=== PATIENT | female | born 1955 | race Caucasian/White ===

== ENCOUNTER 2019-11-01 11:09 | Emergency (ER) | payer OTHER ==
[~2019-11-01] VITALS: Ht 167 cm; Wt 95.0 kg
[~2019-11-01 11:09] MED LIST: ACET-93 PO; ACET325T38 PO; AMIT50TA3 PO; ATOR20TA66 PO; BISO1TAB3 PO; IBUP200T48 PO; NAPR500T8 PO
--- NOTE | 2019-11-01 11:33 | ED Abdominal Pain ---
General Chief Complaint: Abdominal/GI Problems Stated Complaint: PAIN IN SIDE Source of Information: Patient History of Present Illness Date Seen by Provider: Nov 01, 2019 Time Seen by Provider: 11:18 Initial Comments PT ARRIVES VIA POV FROM HOME, NEEDS WHEELCHAIR ON ARRIVAL STATES APPROXIMATELY 2 HOURS AGO, WHILE SITTING DOWN, SHE SUDDENLY HAD A "TWINGE" OF PAIN IN HER CROTCH AREA, AND IT THEN HAS PROGRESSED TO SEVERE PAIN IN LEFT GROIN/LLQ AND LEFT FLANK AREA PAIN COMES IN WAVES AND IS SEVERE NOTHING WORSENS OR IMPROVES PAIN--TOOK 2 IBUPROFEN WITHOUT RELIEF + NAUSEA, NO VOMITING NO PROBLEMS WITH BM NO PROBLEMS URINATING OR ANY URINARY SYMPTOMS NO FEVER HAD NORMAL BM THIS AM--NO BLACK/BLOODY/TARRY STOOLS NO HISTORY OF SIMILAR PCP: DR. CHOUDHARY Allergies and Home Medications Allergies Coded Allergies: Sulfa (Sulfonamide Antibiotics) (Unverified Allergy, Unknown, 11/28/14) Tetanus Vaccines & Toxoid (Unverified Adverse Reaction, Mild, 11/28/14) ADVERSE REACTION TO ONE 34 YRS AGO Home Medications Acetaminophen 500 Mg Tablet, 1,000 MG PO DAILY PRN for PAIN, (Reported) Amitriptyline HCl 50 Mg Tablet, 50 MG PO HS, (Reported) Atorvastatin Calcium 20 Mg Tablet, 20 MG PO HS Prescribed by: BREONNA JAMES on 01/01/16 0851 Hydrocodone/Ibuprofen 1 Each Tablet, 1-2 TAB PO Q4H PRN for PAIN-MODERATE Prescribed by: SEAN FRY on 11/01/19 1300 Nitrofurantoin Monohyd/M-Cryst 100 Mg Capsule, 1 TAB PO BID Prescribed by: SEAN FRY on 11/01/19 1300 Ondansetron 8 Mg Tab.rapdis, 8 MG PO Q6H Prescribed by: SEAN FRY on 11/01/19 1300 Phenazopyridine HCl 200 Mg Tablet, 1 TAB PO TID Prescribed by: SEAN FRY on 11/01/19 1300 Tamsulosin HCl 0.4 Mg Cap, 0.4 MG PO DAILY Prescribed by: SEAN FRY on 11/01/19 1300 Patient Home Medication List Home Medication List Reviewed: Yes Review of Systems Review of Systems Constitutional: no symptoms reported EENTM: No Symptoms Reported Respiratory: No Symptoms Reported Cardiovascular: No Symptoms Reported Gastrointestinal: See HPI, Abdominal Pain; Denies Constipated, Denies Diarrhea; Nausea; Denies Vomiting Genitourinary: Denies Burning, Denies Frequency; Flank Pain; Denies Hematuria, Denies Incontinence, Denies Pain, Denies Urgency Musculoskeletal: see HPI, back pain Skin: no symptoms reported Psychiatric/Neurological: No Symptoms Reported Endocrine: No Symptoms Reported Hematologic/Lymphatic: No Symptoms Reported Past [id number]-[id number]-Idurxd Hx Past Med/Social Hx: Reviewed and Corrections made Patient Social History Alcohol Use: Denies Use Recreational Drug Use: No Smoking Status: Former Smoker (2 PPD, QUIT > 20 YEARS AGO) Type Used: Cigarettes Recent Foreign Travel: No Contact w/Someone Who Travel: No Immunizations Up To Date Tetanus Booster (TDap): More than 5yrs PED Vaccines UTD: Yes Seasonal Allergies Seasonal Allergies: Yes Past Medical History Surgeries: Yes (SPINAL FUSION;COLON RESECTION) Abdominal, Bowel Surgery, Section, Gallbladder, Orthopedic Respiratory: No Cardiac: Yes High Cholesterol, Hypertension Neurological: Yes (CVA W/ R FACIAL DROOP 2016-RESOLVED) Neuropathy, Stroke Reproductive Disorders: No Female Reproductive Disorders: Denies 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: 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 Sexually Transmitted Disease: No HIV/AIDS: No Genitourinary: Yes Neurogenic Bladder Gastrointestinal: Yes (RECTAL CANCER-S/P SURGERY/CHEMO/RADIATION; S/P CHOLECTYSTECTOMY) Gall Bladder Disease Musculoskeletal: Yes (SPINAL FUSION; BILATERAL FOOT DROP/NEUROPATHY FROM BACK PROBLEMS) Degenerate Disk Disease, Arthritis, Back Injury, Foot Drop, Chronic Back Pain Endocrine: No Loss of Vision: Denies Hearing Impairment: Denies Cancer: Yes (RECTAL CANCER 20 YEARS AGO) Rectal, Colon Did You Recieve Any Treatments: Yes What Type of Treatment Did You: Chemotherapy, Radiation, Surgical Intervention Psychosocial: Yes Anxiety Integumentary: No Blood Disorders: No Family Medical History Arthritis Asthma Cataracts Deafness or hearing loss Dementia Diabetes mellitus Fibrocystic disease of breast Gastroenteritis Headache disorder Hypercholesterolemia Hypertension Myocardial infarction Osteoporosis Parkinson's disease Psychosocial problem Thyroid disease Visual disorder No Family History of: AIDS Abdominal aortic aneurysm [place]'s disease Alcoholism Alzheimer's disease Aphasia Cancer of mouth Cardiovascular disease Colon cancer Completed stroke Congenital disease Congenital heart disease Coronary thrombosis Cystic fibrosis Drug abuse Dysphasia Glaucoma Infertility Kidney disease Not obtainable due to adoption Prostate cancer Respiratory disorder Seizure disorder Severe allergy Tuberculosis PSH: -COLONOSCOPIES -COLON RESECTION -LAP CHOLECYSTECTOMY -LUMBAR SPINAL FUSION - Physical Exam Vital Signs Vital Signs - First Documented 11/01/19 11:27 Temp 36.7 Pulse 85 Resp 22 B/P (MAP) 170/99 (122) O2 Delivery Room Air Capillary Refill : Height/Weight/BMI Height: 5'6.00" Weight: 215lbs. 2.0oz. 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, no motor/sensory deficits, alert, oriented x 3 Skin: normal color, warm/dry; No rash Progress/Results/Core Measures Results/Orders Lab Results Laboratory Tests Test 11/01/19 11:30 11/01/19 12:05 Range/Units White Blood Count 6.7 4.3-11.0 10^3/uL Red Blood Count 4.47 4.35-5.85 10^6/uL Hemoglobin 13.2 11.5-16.0 G/DL Hematocrit 40 35-52 % Mean Corpuscular Volume 90 80-99 FL Mean Corpuscular Hemoglobin 30 25-34 PG Mean Corpuscular Hemoglobin Concent 33 32-36 G/DL Red Cell Distribution Width 13.7 10.0-14.5 % Platelet Count 323 130-400 10^3/uL Mean Platelet Volume 9.9 7.4-10.4 FL Neutrophils (%) (Auto) 31 L 42-75 % Lymphocytes (%) (Auto) 54 H 12-44 % Monocytes (%) (Auto) 11 0-12 % Eosinophils (%) (Auto) 4 0-10 % Basophils (%) (Auto) 1 0-10 % Neutrophils # (Auto) 2.1 1.8-7.8 X 10^3 Lymphocytes # (Auto) 3.6 1.0-4.0 X 10^3 Monocytes # (Auto) 0.7 0.0-1.0 X 10^3 Eosinophils # (Auto) 0.3 0.0-0.3 10^3/uL Basophils # (Auto) 0.0 0.0-0.1 10^3/uL Sodium Level 140 135-145 MMOL/L Potassium Level 3.6 3.6-5.0 MMOL/L Chloride Level 107 98-107 MMOL/L Carbon Dioxide Level 21 21-32 MMOL/L Anion Gap 12 5-14 MMOL/L Blood Urea Nitrogen 11 7-18 MG/DL Creatinine 1.06 0.60-1.30 MG/DL Estimat Glomerular Filtration Rate 52 BUN/Creatinine Ratio 10 Glucose Level 110 H 70-105 MG/DL Calcium Level 9.1 8.5-10.1 MG/DL Corrected Calcium 8.7 8.5-10.1 MG/DL Magnesium Level 2.1 1.6-2.4 MG/DL Total Bilirubin 0.6 0.1-1.0 MG/DL Aspartate Amino Transf (AST/SGOT) 26 5-34 U/L Alanine Aminotransferase (ALT/SGPT) 32 0-55 U/L Alkaline Phosphatase 70 40-136 U/L Total Protein 8.0 6.4-8.2 GM/DL Albumin 4.5 3.2-4.5 GM/DL Amylase Level 49 25-125 U/L Lipase 40 8-78 U/L Urine Color YELLOW Urine Clarity SL CLOUDY Urine pH 5.5 5-9 Urine Specific Sixes >=1.030 1.016-1.022 Urine Protein NEGATIVE NEGATIVE Urine Glucose (UA) NEGATIVE NEGATIVE Urine Ketones NEGATIVE NEGATIVE Urine Nitrite NEGATIVE NEGATIVE Urine Bilirubin NEGATIVE NEGATIVE Urine Urobilinogen 0.2 < = 1.0 MG/DL Urine Leukocyte Esterase 1+ H NEGATIVE Urine RBC (Auto) 2+ H NEGATIVE Urine RBC 5-10 H /HPF Urine WBC 10-25 H /HPF Urine Squamous Epithelial Cells 2-5 /HPF Urine Crystals PRESENT H /LPF Urine Amorphous Sediment RARE SHANDA URATES H /LPF Urine Bacteria MODERATE H /HPF Urine Casts NONE /LPF Urine Mucus NEGATIVE /LPF Urine Culture Indicated YES My Orders Orders - SEAN FRY DO Ed Iv/Invasive Line Start (11/01/19 11:18) Amylase (11/01/19 11:18) Cbc With Automated Diff (11/01/19 11:18) Comprehensive Metabolic Panel (11/01/19 11:18) Lipase (11/01/19 11:18) Magnesium (11/01/19 11:18) Ua Culture If Indicated (11/01/19 11:18) Ondansetron Injection (Zofran Injectio (11/01/19 11:45) Ketorolac Injection (Toradol Injection) (11/01/19 11:34) Ed Iv/Invasive Line Start (11/01/19 11:34) Lactated Ringers (Lr 1000 Ml Iv Solution (11/01/19 11:34) Ct Abd/Pelvis Wo(Kidney Stone) (11/01/19 11:41) Abdomen/Kub 1view (11/01/19 11:41) Fentanyl Injection (Sublimaze Injection (11/01/19 12:15) Urine Culture (11/01/19 12:05) Fentanyl Injection (Sublimaze Injection (11/01/19 13:15) Tamsulosin Capsule (Flomax Capsule) (11/01/19 13:15) Medications Given in ED Current Medications Medications Dose Ordered Sig/Dianne Route Start Time Stop Time Status Last Admin Dose Admin Fentanyl Citrate 50 mcg ONCE ONCE IVP 11/01/19 12:15 11/01/19 12:16 DC 11/01/19 12:14 50 MCG Lactated Ringer's 1,000 ml @ 0 mls/hr Q0M ONCE IV 11/01/19 11:34 11/01/19 11:35 DC 11/01/19 11:41 1,000 MLS/HR Ondansetron HCl 4 mg ONCE ONCE IVP 11/01/19 11:45 11/01/19 11:46 DC 11/01/19 11:41 4 MG Vital Signs/I&O 11/01/19 11/01/19 11/01/19 11:27 11:41 12:14 Temp 36.7 36.7 36.7 Pulse 85 Resp 22 B/P (MAP) 170/99 (122) O2 Delivery Room Air Progress Progress Note : Progress Note SYMPTOMS IMPROVED AT DISMISSAL Diagnostic Imaging Comments ABDOMEN XRAYS--PELVIC CALCIFICATIONS OF NO SIGNIFICANCE CT ABDOMEN/PELVIS--PUNCTATE CALCIFICATION LEFT UVJ AREA, WITH MILD LEFT HYDROURETER--POSSIBLE RECENTLY PASSED STONE. RIGHT OVARIAN CYST PER RADIOLOGIST REPORTS AT 1253 Reviewed: Reviewed by Me Departure Impression Primary Impression: Left ureteral calculus Additional Impression: Right ovarian cyst Disposition: HOME, SELF-CARE Condition: Improved Departure-Patient Inst. Referrals: CALEB CHOUDHARY MD (PCP/Family) Primary Care Physician Patient Instructions: Kidney Stones (DC), Ovarian Cyst (DC) Add. Discharge Instructions: LOTS OF CLEAR LIQUIDS STRAIN ALL URINE--RETURN ANY STONES TO YOUR DR'S OFFICE RETURN TO ER IF WORSE FOLLOW UP WITH YOUR DR IN THE NEXT MONTH FOR FURTHER EVALUATION OF RIGHT OVARIAN CYST. All discharge instructions reviewed with patient and/or family. Voiced understanding. Scripts Phenazopyridine HCl (Pyridium) 200 Mg Tablet 1 TAB PO TID, #15 TAB Prov: SEAN FRY DO 11/01/19 Hydrocodone/Ibuprofen (Hydrocodone-Ibuprofen 7.5-200) 1 Each Tablet 1-2 TAB PO Q4H PRN for PAIN-MODERATE MDD 6 TABS for 7 Days, #20 TAB Prov: SEAN FRY DO 11/01/19 Ondansetron (Ondansetron Odt) 8 Mg Tab.rapdis 8 MG PO Q6H, #10 TAB Prov: SEAN FRY DO 11/01/19 Tamsulosin HCl (Flomax) 0.4 Mg Cap 0.4 MG PO DAILY, #10 CAP Prov: SEAN FRY DO 11/01/19 Nitrofurantoin Monohyd/M-Cryst (Macrobid 100 mg Capsule) 100 Mg Capsule 1 TAB PO BID, #20 CAP Prov: SEAN FRY DO 11/01/19 SEAN FRY DO Nov 01, 2019 11:33
[2019-11-01 11:34] LABS: BASOPHILS % (AUTO) 1 % (0-10); EOSINOPHILS # (AUTO) 0.3 10^3/uL (0.0-0.3); EOSINOPHILS % (AUTO) 4 % (0-10); HEMATOCRIT 40 % (35-52); HEMOGLOBIN 13.2 G/DL (11.5-16.0); LYMPHOCYTES # (AUTO) 3.6 X 10^3 (1.0-4.0); LYMPHOCYTES % (AUTO) 54 % (12-44); MEAN CORPUSCULAR HEMOGLOBIN 30 PG (25-34); MEAN CORPUSCULAR HGB CONC 33 G/DL (32-36); MEAN CORPUSCULAR VOLUME 90 FL (80-99); MEAN PLATELET VOLUME 9.9 FL (7.4-10.4); MONOCYTES # (AUTO) 0.7 X 10^3 (0.0-1.0); MONOCYTES % (AUTO) 11 % (0-12); NEUTROPHILS # (AUTO) 2.1 X 10^3 (1.8-7.8); NEUTROPHILS % (AUTO) 31 % (42-75); PLATELET COUNT 323 10^3/uL (130-400); RED CELL DISTRIBUTION WIDTH 13.7 % (10.0-14.5); WHITE BLOOD COUNT 6.7 10^3/uL (4.3-11.0)
[2019-11-01] MEDS ORDERED: KETOROLAC 30 MG/ML VIAL IVP STA (11:34)
[2019-11-01] MEDS ORDERED: LACTATED RINGERS 1,000 ML IV ONE (11:34)
--- OUTSIDE RECORDS SUMMARY | 2019-11-01 11:36 | XMS REPORT ---
Author Author [employer] Organization [employer] Address [address] [address] Care Team Providers Care Dishwasher Preparer Name Role Phone CALEB BERNSTEIN Unavailable CALEB BERNSTEIN MD Unavailable Unavailable CALEB BERNSTEIN MD Unavailable Unavailable Allergies Normalized Allergy Reported Date of Reaction(s) Care Provider Facility Allergy Type classification allergen Allergy Onset DA (3 Unclassified Tetanus 11-28-2014 - no information ANTONI NIXON Via sources.) Vaccines and [facility] Toxoid [facility] ([address]) Medications No Information Problems Problem Normalized Date of Normalized Normalized Provider Fac ility Classification Problem(s) Problem Problem Problem Sta tus Onset/Resoluti Duration on Fluid and Dehydration Episodic Active ANTONI NIXON V ia electrolyte [facility] disorders (1 Hospital - source.) [place] ([address]) Other Nonspecific Episodic Active ANTONI NIXON V ia gastrointestin abnormal [facility] al disorders findings in Hospital - (1 source.) stool contents [place] ([address]) Other Other Episodic Active ANTONI NIXON Via screening for screening [facility] suspected mammogram Hospital - conditions [place] (not mental ([address]) disorders or infectious disease) (1 source.) Intestinal Paralytic Episodic Active ANTONI NIXON Vi a obstruction ileus [facility] without hernia Hospital - (1 source.) [place] ([address]) Cancer of Personal Episodic Active ANTONI NIXON Via rectum and history of [facility] anus (1 malignant Hospital - source.) 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 Immunizations No Information Results No Information Vital Signs The data below is from unstructured sources Vital Response Date/Time Temperature (Fahrenheit) 96.9 degree s F (97.6 - 99.5) 01/01/2016 8:00am Temperature (Calculated Celsius) 36. 75451 degrees C (36.4 - 37.5) 01/01/2016 8:00am Temperature Source Tympanic 01/01/2016 8:00am Pulse Rate (adult) 59 bpm (60 - 90) 01/01/2016 8:00am Respiratory Rate 14 bpm (12 - 24) 01/01/2016 8:00am O2 Sat by Pulse Oximetry 94 % (88 - 100) 01/01/2016 8:00am Blood Pressure 137/89 mm Hg 01/01/2016 8:00am Blood Pressure Mean 105 mm Hg 01/01/2016 8:00am Pain Pain Intensity 0 2015 8:05pm Height (Feet) 5 feet 07/2015 8:05pm Height (Inches) 6.00 inches 12/30/2015 8:05pm Height (Calculated Centimeters) 167. 246723 cm 12/30/2015 8:05pm Weight (Pounds) 215 pounds 01/01/2016 6:00am Weight (Ounces) 2.0 oz 0 01/01/2016 6:00am Weight (Calculated Grams) 08208.060 gm 01/01/2016 6:00am Weight (Calculated Kilograms) 97.579 060 kilograms 01/01/2016 6:00am Calculated BMI 35.5 07/2015 8:05pm Vital Response Date/Time Temperature (Fahrenheit) 97.4 degree s F (97.6 - 99.5) Temperature (Calculated Celsius) 36. 03829 degrees C (36.4 - 37.5) Temperature Source Tympanic Pulse Rate (adult) 74 bpm (60 - 90) Respiratory Rate 18 bpm (12 - 24) O2 Sat by Pulse Oximetry 96 % (88 - 100) Blood Pressure 137/72 mm Hg Pain Pain Intensity 0 Height (Feet) 5 feet Height (Inches) 6.00 inches Height (Calculated Centimeters) 167. 740587 cm Weight (Pounds) 210 pounds Weight (Ounces) 0.0 oz Weight (Calculated Grams) 08347.399 gm Weight (Calculated Kilograms) 95.254 399 kilograms Height 5 ft 6 in Weight 210 lb Body Mass Index 33.9 kg/m^2 Vital Response Date/Time Temperature (Fahrenheit) 97.2 degree s F (97.6 - 99.5) Temperature (Calculated Celsius) 36. 59917 degrees C (36.4 - 37.5) Temperature Source Temporal Pulse Rate (adult) 76 bpm (60 - 90) Respiratory Rate 18 bpm (12 - 24) O2 Sat by Pulse Oximetry 96 % (88 - 100) Blood Pressure 138/70 mm Hg Pain Pain Intensity 0 Height (Feet) 5 feet Height (Inches) 6.00 inches Height (Calculated Centimeters) 167. 983081 cm Weight (Pounds) 210 pounds Weight (Ounces) 0.0 oz Weight (Calculated Grams) 26871.399 gm Weight (Calculated Kilograms) 95.254 399 kilograms Calculated BMI 33.89 Vital Response Date/Time Temperature (Fahrenheit) 97.2 degree s F (97.6 - 99.5) Temperature (Calculated Celsius) 36. 88069 degrees C (36.4 - 37.5) Temperature Source Temporal Pulse Rate (adult) 76 bpm (60 - 90) Respiratory Rate 18 bpm (12 - 24) O2 Sat by Pulse Oximetry 96 % (88 - 100) Blood Pressure 138/70 mm Hg Pain Pain Intensity 0 Height (Feet) 5 feet Height (Inches) 6.00 inches Height (Calculated Centimeters) 167. 895347 cm Weight (Pounds) 210 pounds Weight (Ounces) 0.0 oz Weight (Calculated Grams) 90448.399 gm Weight (Calculated Kilograms) 95.254 399 kilograms Calculated BMI 33.89 Interventions No Information Plan of Treatment The data below is from unstructured sources Discharge Date 01/01/16 9:45am Disposition 01 HOME, SELF-CARE Instructions/Education Provided Isch emic Stroke (DC) Forms Provided PDI Medical Prescriptions See Medication Section Referrals (Unspecified) - Reason(s) for Referral: Follow up with Dr. Bernstein on January 05 at 1:30 p.m. Discharge Date 11/30/14 10:56am Disposition 09 ADMITTED INPATIENT Condition at Discharge Stable/Unchan ged Instructions/Education Provided Acut e Abdominal Pain (ED) Prescriptions See Medications Sectio n Referrals CALEB BERNSTEIN MD (Unspeci fied) Primary Care Physician Address: Formerly named [facility] [facility], [address] [place] [address] [phone] Reason(s) for Referral: FOLLOW-UP NEEDED WITH DR BERNSTEIN AND/OR KEEP ALREADY SCHEDULED APPOINTMENTS Discharge Date 11/30/14 12:04pm Disposition 30 STILL A PATIENT Instructions/Education Provided Acut e Abdominal Pain (ED) Prescriptions See Medications Sectio n Referrals CALEB BERNSTEIN MD (Unspeci fied) Address: Formerly named [facility] [facility] [address] [place] [address] [phone] Reason(s) for Referral: FOLLOW-UP NEEDED WITH DR BERNSTEIN AND/OR KEEP ALREADY SCHEDULED APPOINTMENTS Discharge Date 11/30/14 12:04pm Disposition 30 STILL A PATIENT Instructions/Education Provided Acut e Abdominal Pain (ED) Prescriptions See Medications Sectio n Referrals CALEB BERNSTEIN MD (Unspeci fied) Address: Formerly named [facility] [address] [place] [address] [phone] Reason(s) for Referral: FOLLOW-UP NEEDED WITH DR BERNSTEIN AND/OR KEEP ALREADY SCHEDULED APPOINTMENTS Goals No Information Social History No Information Functional Status The data below is from unstructured sources Query Response Date Chinmay rded Patient Orientation Person Place Time Situation December 31, 2015 4:10pm Patient Orientation Person Place Time Situation January 01, 2016 10:22am Comprehension Ability Understands Co ncepts January 01, 2016 9:03am Query Response Date Chinmay rded Comprehension Ability Understands Co ncepts November 28, 2014 1:30pm Query Response Date Chinmay rded Comprehension Ability Understands Co ncepts November 28, 2014 1:30pm Mental Status No Information Encounters Encounter Normalized Encounter Encounter Diagnosis Care Provi evy Organization Date Type 05-08-2014 Patient encounter no information no name (no phone) no organization name procedure (no phone) no information Pre-operative no name (no phone) no organiza tion name examination, (no phone) unspecified Medical Equipment No Information Payers No Information Advance Directives Directive Response Recor ded Date/Time Advance Directives No 8:05pm Health Care Power of [employer] No 12/30/15 8:05pm Organ Donor Yes 12/30/15 8:05pm Resuscitation Status Full Code 12/30/15 8:05pm Directive Response Recor ded Date/Time Advance Directives No 8:16am Health Care Power of [employer] No 12/30/14 8:16am Organ Donor Yes 12/30/14 8:16am Resuscitation Status Full Code 12/30/14 8:16am Directive Response Recor ded Date/Time Advance Directives No 1:17pm Health Care Power of [employer]orer [employer] No 11/28/14 1:17pm Organ Donor Yes 11/28/14 1:17pm Resuscitation Status Full Code 11/28/14 1:17pm Discharge Instructions No hospital discharge instructions. Patient Instructions Physician Instructions Plan of Care/Instructions/FU: Continue a light bland diet. I would not use Imodium for several days. It would be okay to try a probiotic Asked Dr. Bernstein about the use of Questran Activity as Tolerated: Yes Discharge Diet: Eat Small Frequent Meals Return to The Hospital For: Relapsed to vomiting and no bowel movements Care Plan Patient Instructions:: Continue a light bland diet.I would not use Imodium for several days.It would be okay to try a probioticAsked Dr. Bernstein about the use of Questran Patient Instructions Physician Instructions Plan of Care/Instructions/FU: Continue a light bland diet. I would not use Imodium for several days. It would be okay to try a probiotic Asked Dr. Bernstein about the use of Questran Activity as Tolerated: Yes Discharge Diet: Eat Small Frequent Meals Return to The Hospital For: Relapsed to vomiting and no bowel movements Care Plan Patient Instructions:: Continue a light bland diet.I would not use Imodium for several days.It would be okay to try a probioticAsked Dr. Bernstein about the use of Questran Additional Source Comments This clinical document has been generated using [employer] software that has been certified by the Office of the National Coordinator for Health Information Technology (ONC 15.99.04.3023.Diam.31.00.0.074943) and the National Committee for Hydrological Technical Officer (NCQA, as an eMeasure certified technology). FOR RECORDS PERTAINING TO PATIENTS WHO ARE OR HAVE BEEN ENROLLED IN A CHEMICAL D EPENDENCY/SUBSTANCE ABUSE PROGRAM, SOME INFORMATION MAY BE OMITTED. This clinica l summary was aggregated from multiple sources. Caution should be exercised in using it in the provision of clinical care. This summary normalizes information from multiple sources, and as a consequence, information in this document may ma terially change the coding, format and clinical context of patient data. In hilda tion, data may be omitted in some cases. CLINICAL DECISIONS SHOULD BE BASED ON T HE PRIMARY CLINICAL RECORDS. [facility] [employer] [facility]. provides no warranty or guara ntee of the accuracy or completeness of information in this document.The followi ng information is based on time limited clinical information
--- OUTSIDE RECORDS SUMMARY | 2019-11-01 11:37 | XMS REPORT | Continuity of Care Document ---
Author Organization Unknown Address Unknown Phone Unavailable Allergies Active Description Code Type Severity Reaction Onset Reported/Identified Relationship to Patient Clinical Status Yes Tetanus Vaccines Toxoid [id number] Drug Allergy Mild N/A 11/28/2014 Yes Tetanus Vaccines and Toxoid [id number] Drug Allergy Mild N/A 11/28/2014 Yes Sulfa (Sulfonamide Antibiotics) [id number] Drug Allergy Unknown N/A 015 Medications There is no data. Problems Date Dx Coded Attending Type Code Diagnosis Diagnosed By 07/14/2011 Ot 724.4 07/14/2011 Ot 729.5 07/14/2011 Ot 782.0 07/14/2011 Ot V57.1 11/28/2014 Ot 574.20 11/28/2014 Ot 574.20 11/28/2014 Ot V72.84 11/28/2014 Ot V74.8 11/28/2014 Ot 574.10 11/28/2014 Ot 722.10 11/28/2014 Ot V76.12 11/28/2014 CALEB CHOUDHARY MD Ot V76. 12 11/28/2014 Ot 574.20 11/28/2014 Ot 574.20 11/28/2014 Ot V72.84 11/28/2014 Ot V74.8 11/28/2014 Ot 574.10 11/28/2014 Ot 722.10 11/28/2014 Ot V76.12 11/28/2014 CALEB CHOUDHARY MD Ot V76. 12 11/30/2014 KENRICK GARCIA, CALEB Rodriguez Ot 276. 51 DEHYDRATION 11/30/2014 KENRICK GARCIA, CALEB Rodriguez Ot 560. 1 PARALYTIC ILEUS 11/30/2014 CALEB CHOUDHARY MD Ot 787. 01 NAUSEA WITH VOMITING 11/30/2014 KENRICK GARCIA, CALEB Rodriguez Ot 792. 1 ABN FIND-STOOL CONTENTS 11/30/2014 KENRICK GARCIA, CALEB Rodriguez Ot V10. 06 HX-RECTAL ANAL MALIGN 12/08/2014 Ot 574.20 12/08/2014 Ot 574.20 12/08/2014 Ot V72.84 12/08/2014 Ot V74.8 12/08/2014 Ot 574.10 12/08/2014 Ot 722.10 12/08/2014 Ot V76.12 12/08/2014 CALEB CHOUDHARY MD Ot V76. 12 12/30/2014 CALEB CHOUDHARY MD Ot 211. 4 BENIGN NEOPL RECTUM/ANUS 12/30/2014 CALEB CHOUDHARY MD Ot V10. 06 HX-RECTAL ANAL MALIGN 01/01/2016 HUMPHREY DO, CYNTHIA Ot G57.32 LESION OF LATERAL POPLITEAL NERVE, LEFT 01/01/2016 HUMPHREY DO, CYNTHIA Ot H53.2 DIPLOPIA 01/01/2016 HUMPHREY DO, CYNTHIA Ot H55.00 UNSPECIFIED NYSTAGMUS 01/01/2016 HUMPHREY DO, CYNTHIA Ot I10 ESSENTIAL (PRIMARY) HYPERTENSION 01/01/2016 HUMPHREY DO, CYNTHIA Ot I63.9 CEREBRAL INFARCTION, UNSPECIFIED 01/01/2016 HUMPHREY DO, CYNTHIA Ot R27.0 ATAXIA, UNSPECIFIED 01/01/2016 HUMPHREY DO, CYNTHIA Ot R29.81 0 FACIAL WEAKNESS 01/01/2016 HUMPHREY DO, CYNTHIA Ot T45.1X 5A ADVERSE EFFECT OF ANTINEOPLASTIC AND IMM 01/01/2016 MILAGRO DO CYNTHIA Ot Y84.2 RADIOLOG PROC/RADIOTHRPY CAUSE ABN REACT 05/13/2016 CALEB CHOUDHARY MD Ot Z12. 31 ENCNTR SCREEN MAMMOGRAM FOR MALIGNANT NE 05/25/2016 CALEB CHOUDHARY MD Ot Z12. 31 ENCNTR SCREEN MAMMOGRAM FOR MALIGNANT NE 12/17/2018 CALEB CHOUDHARY MD Ot V76. 12 OT SCREEN MAMMO-MALIGN NEOPLASM OF GERARDO 12/17/2018 CALEB CHOUDHARY MD Ot V72. 84 EXAM PRE-OPERATIVE NOS Procedures Code Description Performed By Per formed On [id number] 12/30/2015 Results Test Result Range Complete blood count (CBC) with automate d white blood cell (WBC) differential - 11/01/19 11:30 Blood leukocytes automated count (number/volume) 6.7 10*3/uL 4.3-11.0 Blood erythrocytes automated count (number/volume) 4.47 10*6/uL 4.35-5.85 Venous blood hemoglobin measurement (mass/volume) 13.2 g/dL 11.5-16.0 Blood hematocrit (volume fraction) 40 % 35-52 Automated erythrocyte mean corpuscular volume 90 [ foz_us] 80-99 Automated erythrocyte mean corpuscular h emoglobin (mass per erythrocyte) 30 pg 25-34 Automated erythrocyte mean corpuscular h emoglobin concentration measurement (mass/volume) 33 g/dL 32-36 Automated erythrocyte distribution width ratio 13. 7 % 10.0- 14.5 Automated blood platelet count (count/volume) 323 10*3/uL 130-400 Automated blood platelet mean volume measurement 9.9 [foz_us] 7.4-10.4 Automated blood neutrophils/100 leukocytes 31 % 42-75 Automated blood lymphocytes/100 leukocytes 54 % 12-44 Blood monocytes/100 leukocytes 11 % 0-12 Automated blood eosinophils/100 leukocytes 4 % 0-10 Automated blood basophils/100 leukocytes 1 % 0-10 Blood neutrophils automated count (number/volume) 2.1 10*3 1.8-7.8 Blood lymphocytes automated count (number/volume) 3.6 10*3 1.0-4.0 Blood monocytes automated count (number/volume) 0. 7 10*3 0.0-1.0 Automated eosinophil count 0.3 10*3/uL 0 .0-0.3 Automated blood basophil count (count/volume) 0.0 10*3/uL 0.0-0.1 Encounters ACCT No. Visit Date/Time Discharge Status Pt. Type Provider Facility Loc./Unit Complaint [id number] 05/11/2016 10:28:00 23:59:59 CLS Outpatient CALEB CHOUDHARY MD [facility] RAD SCREENING [id number] 12/30/2015 19:15:00 09:45:00 DIS Inpatient CYNTHIA HUMPHREY DO, V [facility] ICU FACIAL DROOPING [id number] 12/30/2014 07:45:00 10:20:00 DIS Outpatient CALEB CHOUDHARY MD [facility] SDC OCCULT POSITIVE BLOOD [id number] 12/25/2014 05:47:00 23:59:59 CLS Outpatient CALEB CHOUDHARY MD [facility] PREOP OCCULT POSITIVE BLOOD [id number] 11/28/2014 12:47:00 015 12:04:00 DIS Inpatient CALEB CHOUDHARY MD [facility] 4TH N/V, ILEUS [id number] 05/08/2014 10:13:00 014 23:59:59 CLS Outpatient CALEB CHOUDHARY MD [facility] RAD SCREENING [id number] 11/01/2019 11:34:00 Document Registration [id number] 11/28/2014 07:58:00 Document Registration [id number] 02/17/2012 13:22:00 Document Registration [id number] 07/04/2011 09:38:00 Document Registration [id number] 06/21/2011 13:00:00 Document Registration [id number] 05/04/2011 05:35:00 Document Registration [id number] 05/02/2011 13:35:00 Document Registration
[2019-11-01] MEDS ORDERED: ONDANSETRON 4 MG/2 ML (SDV) Z0FRAN IVP ONE (11:45)
[2019-11-01 11:54] LABS: ALBUMIN 4.5 GM/DL (3.2-4.5); BILIRUBIN,TOTAL 0.6 MG/DL (0.1-1.0); CALCIUM 9.1 MG/DL (8.5-10.1); CREATININE SERUM 1.06 MG/DL (0.60-1.30); MAGNESIUM 2.1 MG/DL (1.6-2.4); POTASSIUM 3.6 MMOL/L (3.6-5.0)
[2019-11-01 12:09] LABS: BILIRUBIN,URINE NEGATIVE (NEGATIVE); CLARITY,URINE SL CLOUDY; COLOR,URINE YELLOW; GLUCOSE, URINE (UA) NEGATIVE (NEGATIVE); KETONES,URINE NEGATIVE (NEGATIVE); LEUKOCYTE ESTERASE ,URINE 1+ (NEGATIVE); NITRITE,URINE NEGATIVE (NEGATIVE); PH,URINE 5.5 (5-9); PROTEIN,URINE NEGATIVE (NEGATIVE)
[2019-11-01] MEDS ORDERED: fentaNYL INJECTION 100 MCG/2 ML AMP IVP ONE ×2 (12:15→13:15)
[2019-11-01 12:16] LABS: AMORPHOUS SEDIMENT,UR RARE AMOR URATES /LPF; BACTERIA,URINE MODERATE /HPF
--- NOTE | 2019-11-01 12:45 | Diagnostic Imaging Report ---
INDICATION: Left-sided pain from front to the back starting 2 hours ago, nausea.. TECHNIQUE: 2 supine view of the abdomen 12:34 PM CORRELATION STUDY: None FINDINGS: Imaging of the abdomen demonstrates the bowel gas pattern to be unremarkable and without evidence for obstruction. No significant differential air-fluid levels. No evidence for free air. There are several punctate calcifications within the pelvis. Majority favor probable phleboliths. Possibility of a distal ureteral stone however would be difficult to exclude. Postoperative changes in the posterior lumbar spinal fixation hardware at the L3-L5 level. Cholecystectomy clips in the right upper quadrant. IMPRESSION: 1. Nonobstructive appearing bowel gas pattern. 2. Several calcifications in the pelvis likely of no significance. However, possibly distal ureteral stones would be difficult to exclude given positioning in appearance. Dictated by: Dictated on workstation # [id number]
--- NOTE | 2019-11-01 12:48 | Diagnostic Imaging Report ---
PROCEDURE: CT urinary tract, rule out kidney stone. TECHNIQUE: Multiple contiguous axial images were obtained through the abdomen and pelvis without the use of intravenous contrast. Auto Exposure Controls were utilized during the CT exam to meet ALARA standards for radiation dose reduction. INDICATION: Left abdominal pain radiating into the back. Evaluate for kidney stones. COMPARISON: CT abdomen and pelvis performed on 11/28/2014. FINDINGS: Absence of intravenous contrast decreases sensitivity for detection of focal lesions and vascular pathology. LOWER THORAX: Mild basilar subsegmental atelectasis and/or scarring. Visualized heart is normal in size. LIVER: Dystrophic, benign-appearing calcification is demonstrated in the right hepatic lobe. The liver is otherwise normal. GALLBLADDER: Surgically absent. BILE DUCTS: No biliary ductal dilatation. SPLEEN: Normal. PANCREAS: Normal. No pancreatic ductal dilatation. ADRENAL GLANDS: No nodules. KIDNEYS AND URETERS: There is mild fullness of the left collecting system, without overt hydronephrosis. There is also mild prominence of the left ureter along its entire course. There is mild periureteral stranding on the left. There is no hydronephrosis on the right. The right ureter is normal. There is mild asymmetric perinephric stranding on the left, without focal perinephric collection demonstrated. STOMACH AND BOWEL: Stomach is physiologically-distended. No bowel obstruction. No inflammatory changes. APPENDIX: Not visualized. No pericecal inflammation. PELVIC ORGANS/BLADDER: Bladder is collapsed and not well-evaluated. There is a punctate hyperdense focus along the posterior bladder just to the left of midline, medial to the ureterovesical junction. The uterus is atrophic. There is a low-attenuation structure measuring 2.3 x 2.2 cm in the right adnexa, presumably related to the right ovary. There is no pelvic free fluid. PERITONEUM AND RETROPERITONEUM: There is no pneumoperitoneum. No abdominal free fluid or loculated collection. LYMPH NODES: No lymphadenopathy. VESSELS: Mild atherosclerotic calcification. Abdominal aorta is nonaneurysmal. ABDOMINAL WALL: There is an unchanged small fat-containing paraumbilical hernia, with surgical clips demonstrated in the herniated fat. BONES: Multilevel degenerative changes involve the spine. No acute osseous abnormality. The patient is status post spinal fusion at the L3-L5 levels, with interbody fusion devices at the L3-L4 and L4-L5 levels and pedicle screws and interconnecting rods all levels. Bony fusion is demonstrated across the fused levels. IMPRESSION: There is mild fullness of the left collecting system and prominence of the left ureter as well as mild periureteral and left perinephric stranding. There is a punctate hyperdense focus in the posterior bladder, just medial to the left ureterovesical junction, and constellation of findings are felt to reflect a recently passed tiny renal calculus. There is no perinephric collection. Evaluation for infection is limited without IV contrast and pyelonephritis should be excluded on a clinical basis. There is a cystic structure in the right adnexa measuring up to 2.3 cm, felt to be related to the right ovary. Given patient's age, dedicated evaluation with pelvic ultrasound is recommended on a nonemergent basis, with gynecologic consult, as indicated. Other chronic and incidental findings are detailed above. Dictated by: Dictated on workstation # [id number]
[2019-11-01] MEDS ORDERED: PHEN-640 PO (13:00)
[2019-11-01] MEDS ORDERED: ONDA8TAB13 PO (13:00)
[2019-11-01] MEDS ORDERED: NITR-65 PO (13:00)
[2019-11-01] MEDS ORDERED: TMSL.4C PO (13:00)
[2019-11-01] MEDS ORDERED: HYDR-87 PO (13:00)
[2019-11-01] MEDS ORDERED: TAMSULOSIN 0.4 MG (FLOMAX) CAP PO SCH (13:15)
[2019-11-01 13:37] VITALS: BP 150/88
== END 2019-11-01 13:30 | disposition home or self-care (01) ==
LOC: EDUNIT# 11:09 → ER 11:12
DX: N20.0 Calculus of kidney (principal); N83.201 Unspecified ovarian cyst, right side; E78.00 Pure hypercholesterolemia, unspecified; I10 Essential (primary) hypertension; F41.9 Anxiety disorder, unspecified; N31.9 Neuromuscular dysfunction of bladder, unspecified; Z98.1 Arthrodesis status; Z92.21 Personal history of antineoplastic chemotherapy; Z92.3 Personal history of irradiation; Z88.2 Allergy status to sulfonamides; Z88.7 Allergy status to serum and vaccine; Z79.899 Other long term (current) drug therapy
CPT/HCPCS: 36415; 74018; 74176; 80053; 81000; 82150; 83690; 83735; 85025; 87077; 87088; 87186

== ENCOUNTER → 2022-01-06 | Outpatient (CLI) | payer MEDICARE, OTHER ==
[~2022-01-06] MED LIST changes: +BISO-2 PO; -BISO1TAB3 PO; +HYDR-4085 PO; +NITR-65 PO; +ONDA8TAB13 PO; +PHEN-640 PO; +TMSL.4C PO
--- NOTE | 2022-01-11 18:11 | Diagnostic Imaging Report ---
INDICATION: Routine screening. Correlation is made to prior mammogram from 09/04/2018 and 05/11/2016. 2-D and 3-D bilateral screening mammography was performed with CAD. Scattered fibroglandular densities are identified bilaterally. The parenchymal pattern appears stable. No mass or malignant-appearing microcalcifications are seen. The axillae are unremarkable. IMPRESSION: No mammographic features suspicious for malignancy are identified. ACR BI-RADS Category 1: Negative. Result letter will be mailed to the patient. Note: At least 10% of breast cancer is not imaged by mammography. BI-RADS Category 1 Dictated on workstation # [id number]
== END ==
LOC: RAD 11:30
PROVIDERS: ATTEND Internal Medicine
DX: Z12.31 Encounter for screening mammogram for malignant neoplasm of breast (principal)
CPT/HCPCS: 77063; 77067

== ENCOUNTER 2023-02-28 15:07 | Inpatient (IN) | payer MEDICARE ==
[~2023-02-28] VITALS: Ht 168 cm; Wt 105.7 kg
[2023-02-28 15:19] LABS: BASOPHILS % (AUTO) 0 % (0-10); EOSINOPHILS # (AUTO) 0.3 10^3/uL (0.0-0.3); EOSINOPHILS % (AUTO) 3 % (0-10); HEMATOCRIT 39 % (35-52); HEMOGLOBIN 12.5 g/dL (11.5-16.0); LYMPHOCYTES # (AUTO) 5.4 X 10^3 (1.0-4.0); LYMPHOCYTES % (AUTO) 58 % (12-44); MEAN CORPUSCULAR HEMOGLOBIN 30 pg (25-34); MEAN CORPUSCULAR HGB CONC 32 g/dL (32-36); MEAN CORPUSCULAR VOLUME 92 fL (80-99); MEAN PLATELET VOLUME 9.7 fL (9.0-12.2); MONOCYTES # (AUTO) 0.7 X 10^3 (0.0-1.0); MONOCYTES % (AUTO) 8 % (0-12); NEUTROPHILS # (AUTO) 2.8 X 10^3 (1.8-7.8); NEUTROPHILS % (AUTO) 31 % (42-75); PLATELET COUNT 325 10^3/uL (130-400); WHITE BLOOD COUNT 9.3 10^3/uL (4.3-11.0)
[2023-02-28] MEDS ORDERED: NS 100 ML (IVPB) BAG IV ONE (15:30)
[2023-02-28] MEDS ORDERED: IOHEXOL 350 MG/ML 100 ML (OMNIPAQUE 350) VIAL IV ONE (15:30)
[2023-02-28] MEDS ORDERED: HOLD METFORMIN - RECEIVED CONTRAST 20 ML VIAL IV SCH (15:30)
[2023-02-28 15:31] LABS: ALBUMIN 4.3 GM/DL (3.2-4.5); CHLORIDE 105 MMOL/L (98-107); INR 0.9 (0.8-1.4); PARTIAL THROMBOPLASTIN TIME 26 SEC (24-35); PROTHROMBIN TIME PATIENT 12.6 SEC (12.2-14.7)
[2023-02-28 15:32] LABS: POTASSIUM 3.5 MMOL/L (3.6-5.0); SODIUM 140 MMOL/L (135-145)
[2023-02-28 15:33] LABS: CALCIUM 9.7 MG/DL (8.5-10.1)
[2023-02-28 15:34] LABS: GLUCOSE 126 MG/DL (70-105)
[2023-02-28 15:35] LABS: CARBON DIOXIDE 24 MMOL/L (21-32)
--- NOTE | 2023-02-28 15:35 | Diagnostic Imaging Report ---
INDICATION: Stroke. TECHNIQUE: Frontal chest obtained at 03:35 p.m. FINDINGS: Heart is borderline in size. There is no focal infiltrate or pneumothorax or pleural fluid. IMPRESSION: Borderline heart size with no acute process in the chest. Dictated by: Dictated on workstation # [id number]
[2023-02-28 15:36] LABS: FIBRIN DEGRADATION PRODUCTS < 0.27 UG/ML (0.00-0.49)
[2023-02-28 15:37] LABS: ALKALINE PHOSPHATASE 78 U/L (40-136); CREATININE SERUM 1.09 MG/DL (0.60-1.30); GFR ESTIMATED 56
[2023-02-28 15:38] LABS: BUN/CREATININE RATIO 14
--- NOTE | 2023-02-28 15:39 | Diagnostic Imaging Report ---
INDICATION: Visual changes and nausea. TECHNIQUE: Multiple contiguous axial images were obtained through the brain without the use of intravenous contrast. Auto Exposure Controls were utilized during the CT exam to meet ALARA standards for radiation dose reduction. Comparison made to 12/31/2015. FINDINGS: There are no extra-axial fluid collections. No intracranial hemorrhage. No intracranial mass or mass effect. No midline shift. The ventricles are normal in size and position. There were no focal parenchymal abnormalities in the brain. Calvarial windows are unremarkable. IMPRESSION: No acute intracranial abnormality. Dictated by: Dictated on workstation # [id number]
[2023-02-28 15:40] LABS: ALANINE AMINOTRANSFERASE 28 U/L (0-55)
[2023-02-28 15:44] LABS: BILIRUBIN,TOTAL 0.5 MG/DL (0.1-1.0)
--- NOTE | 2023-02-28 15:55 | Diagnostic Imaging Report ---
PROCEDURE: CT angiography of the head and CT angiography of the neck with and without contrast. TECHNIQUE: Contiguous noncontrast images were obtained from the skull base through the vertex. After intravenous contrast administration, helical CT angiography of the neck was performed. Source data was reformatted into 3D MIP projections. Delayed post contrast acquisition was also obtained. Auto Exposure Controls were utilized during the CT exam to meet ALARA standards for radiation dose reduction. INDICATION: Diplopia, blurred vision, nausea, clinical suspicion for stroke. COMPARISON: Study is compared with exam 12/30/2015. FINDINGS: Delayed postcontrast-enhanced head CT showed patency of the major dural venous sinuses with no abnormal parenchymal or meningeal enhancement. No contrast extravasation. No hydrocephalus. No mass or mass effect. CT ANGIOGRAM NECK: The left common carotid arises off the innominate as a variant. Great vessels are widely patent. Bilateral cervical vertebral arteries are patent and codominant. The common carotids are patent. There is predominantly calcified plaque at the left proximal ICA resulting in no luminal stenosis. The cervical internal carotids are otherwise widely patent and do have a tortuous course. No cervical arterial dissection, occlusion, or significant stenosis. CT ANGIOGRAM HEAD: The intradural vertebral arteries, the basilar, and the bilateral [employer] segments are patent. The intracranial ICAs showed mild non-stenosing calcified plaques at their cavernous segments. The anterior cerebral arterial segments and the A-comm are all widely patent. The bilateral middle cerebral arterial segments and their primary branches are patent. No thrombus or large vessel occlusion. No aneurysm or vascular malformation. IMPRESSION: Mild non-stenosing cervical and intracranial left greater than right carotid atherosclerotic calcified plaques, but no thrombus, aneurysm, dissection, or acute cervical or intracranial arterial pathology. Dictated by: Dictated on workstation # [id number]
[2023-02-28] MEDS ORDERED: TENECTEPLASE 50 MG VIAL IV ONE (16:00)
[2023-02-28] MEDS ORDERED: ONDANSETRON 4 MG/2 ML (SDV) Z0FRAN IVP ONE ×2 (16:15)
--- NOTE | 2023-02-28 16:16 | ED Neurological Problem ---
General Chief Complaint: Neuro-Stroke Like Symptoms Stated Complaint: STROKE LIKE SYMPTOMS Nursing Triage Note: PT TAKEN FROM VEHICLE IN A W/C STATES HX OF HAVING A STROKE IN 2016 AND FEELS LIKE WHEN IT HAPPENED THEN, DOUBLE/BLURRED VISION, NAUSEA, STROKE ACTIVATION PAGED AT 1506 Source: patient, old records Exam Limitations: no limitations History of Present Illness Date Seen by Provider: Feb 28, 2023 Time Seen by Provider: 15:06 Initial Comments This is 67-year-old woman presents to the emergency room via private vehicle with concerns about a possible stroke in progress. She notes her last known well time as 1350. 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 She had a similar episode thought to be a stroke in 2016 for which she received alteplase. She reports symptoms resolved in about 6 hours during that admission. She has had some similar episodes in the past that have lasted a few minutes or less. She waited a few minutes with today's episode but symptoms did not resolve. She then decided to come to the emergency room. Her dizziness stops when she closes her eyes. She is observed to have nystagmus with eye movements and gaze in all directions. She has had some disequilibrium with ambulation as well. Her reports speech is slower than usual. Her prior stroke included symptoms of dysarthria, facial droop, and vision change. She denies having any residual symptoms from the prior stroke. In review of patient's chart from her prior strokelike episode, no abnormalities were seen on imaging studies. She did not have an MRI at any time after the event and is unsure why she has not had an MRI. Dr. Bernstein is her primary care provider. Allergies and Home Medications Allergies Coded Allergies: Sulfa (Sulfonamide Antibiotics) (Unverified Allergy, Unknown, 11/28/14) Tetanus Vaccines and Toxoid (Unverified Adverse Reaction, Mild, 11/28/14) ADVERSE REACTION TO ONE 34 YRS AGO Patient Home Medication List Home Medication List Reviewed: Yes Acetaminophen (Acetaminophen) 500 Mg Tablet, 1,000 MG PO DAILY PRN for PAIN, (Reported) Entered as Reported by: GLEN SILVA on 12/31/15 0835 Amitriptyline HCl (Amitriptyline HCl) 50 Mg Tablet, 50 MG PO HS, (Reported) Entered as Reported by: GLEN SILVA on 12/31/15 0835 Atorvastatin Calcium (Atorvastatin Calcium) 20 Mg Tablet, 20 MG PO HS Prescribed by: BREONNA JAMES on 01/01/16 0851 Hydrocodone/Ibuprofen (Hydrocodone-Ibuprofen 7.5-200) 1 Each Tablet, 1-2 TAB PO Q4H PRN for PAIN-MODERATE Prescribed by: SEAN FRY on 11/01/19 1300 Nitrofurantoin Monohyd/M-Cryst (Macrobid 100 mg Capsule) 100 Mg Capsule, 1 TAB PO BID Prescribed by: SEAN FRY on 11/01/19 1300 Ondansetron (Ondansetron Odt) 8 Mg Tab.rapdis, 8 MG PO Q6H Prescribed by: SEAN FRY on 11/01/19 1300 Phenazopyridine HCl (Pyridium) 200 Mg Tablet, 1 TAB PO TID Prescribed by: SEAN FRY on 11/01/19 1300 Tamsulosin HCl (Flomax) 0.4 Mg Cap, 0.4 MG PO DAILY Prescribed by: SEAN FRY on 11/01/19 1300 Review of Systems Review of Systems Constitutional: no symptoms reported Eyes: See HPI Ears, Nose, Mouth, Throat: no symptoms reported Respiratory: no symptoms reported Cardiovascular: no symptoms reported Gastrointestinal: see HPI Genitourinary: no symptoms reported : No Musculoskeletal: no symptoms reported Skin: no symptoms reported Psychiatric/Neurological: See HPI Endocrine: No Symptoms Reported Hematologic/Lymphatic: No Symptoms Reported Past Ymsfokj-Dalrqj-Qekrvu Hx Patient Social History Tobacco Use?: No Substance use?: No Alcohol Use?: No Immunizations Up To Date Tetanus Booster (TDap): More than 5yrs PED Vaccines UTD: Yes Seasonal Allergies Seasonal Allergies: Yes Past Medical History Surgery/Hospitalization HX: STROKE IN 2016, [facility], SPINAL FUSION, C SECTION, BI LAT WRIST, RECTAL CA Surgeries: Yes (SPINAL FUSION;COLON RESECTION) Abdominal, Bowel Surgery, Section, Gallbladder, Orthopedic Respiratory: No Cardiac: Yes High Cholesterol, Hypertension Neurological: Yes (CVA W/ R FACIAL DROOP 2016-RESOLVED) Neuropathy, Stroke Reproductive Disorders: No Female Reproductive Disorders: Denies [employer] History: Menopausal Sexually Transmitted Disease: No HIV/AIDS: No Genitourinary: Yes Neurogenic Bladder Gastrointestinal: Yes (RECTAL CANCER-S/P SURGERY/CHEMO/RADIATION; S/P CHOLECTYSTECTOMY) Gall Bladder Disease Musculoskeletal: Yes (SPINAL FUSION; BILATERAL FOOT DROP/NEUROPATHY FROM BACK PROBLEMS) Degenerate Disk Disease, Arthritis, Back Injury, Foot Drop, Chronic Back Pain Endocrine: No Loss of Vision: Denies Hearing Impairment: Denies Cancer: Yes (RECTAL CANCER 20 YEARS AGO) Rectal, Colon Did You Recieve Any Treatments: Yes What Type of Treatment Did You: Chemotherapy, Radiation, Surgical Intervention Psychosocial: Yes Anxiety Integumentary: No Blood Disorders: No Family Medical History Arthritis Asthma Cataracts Deafness or hearing loss Dementia Diabetes mellitus Fibrocystic disease of breast Gastroenteritis Headache disorder Hypercholesterolemia Hypertension Myocardial infarction Osteoporosis Parkinson's disease Psychosocial problem Thyroid disease Visual disorder No Family History of: AIDS Abdominal aortic aneurysm Will's disease Alcoholism Alzheimer's disease Aphasia Cancer of mouth Cardiovascular disease Colon cancer Completed stroke Congenital disease Congenital heart disease Coronary thrombosis Cystic fibrosis Drug abuse Dysphasia Glaucoma Infertility Kidney disease Not obtainable due to adoption Prostate cancer Respiratory disorder Seizure disorder Severe allergy Tuberculosis PSH: -COLONOSCOPIES -COLON RESECTION -LAP CHOLECYSTECTOMY -LUMBAR SPINAL FUSION - Physical Exam Vital Signs Vital Signs - First Documented 02/28/23 15:11 Temp 35.6 Pulse 84 Resp 20 B/P (MAP) 178/89 (118) Pulse Ox 96 O2 Delivery Room Air Capillary Refill : Less Than 3 Seconds Height, Weight, BMI Height: 5'6.00" Weight: 215lbs. 2.0oz. [id number]; 36.00 BMI Method:Stated General Appearance: WD/WN, no apparent distress HEENT: PERRL/EOMI, normal ENT inspection Neck: normal inspection Respiratory: normal breath sounds, no respiratory distress Cardiovascular: regular rate, rhythm, no edema, no murmur Gastrointestinal: soft; No distended Extremities: normal inspection, no pedal edema Neurologic/Psychiatric: alert, normal mood/affect, oriented x 3, abnormal enamel sprayer II-XII (Speech slower than normal, nystagmus with extraocular movements and gaze in all directions, diagonal diplopia), other (Slight left leg weakness, chronic but slightly worse than baseline) Coordination/Gait: ABN nose to finger (R) Motor/Sensory: weak motor strength LLE Skin: normal color, warm/dry Stroke Stroke Thrombolytic Exclusion Age 18 or Over: Yes History of CVA: No Severe Hypertension: No GI or Bleed: No Subarachnoid Hemorrhage: No Intracranial Neoplasm/Aneurysm: No Puncture of Non-Compressible V: No Recent CPR: No Diabetic Hemorrhagic Retinopat: No Organ Biopsy: No Recent Obstetric Delivery: No Significant Hepatic Dysfunctio: No NIH Stoke Scale >22: No Improving Symptoms: No Progress/Results/Core Measures Results/Orders Lab Results Laboratory Tests Test 02/28/23 15:10 02/28/23 15:42 Range/Units White Blood Count 9.3 4.3-11.0 10^3/uL Red Blood Count 4.19 3.80-5.11 10^6/uL Hemoglobin 12.5 11.5-16.0 g/dL Hematocrit 39 35-52 % Mean Corpuscular Volume 92 80-99 fL Mean Corpuscular Hemoglobin 30 25-34 pg Mean Corpuscular Hemoglobin Concent 32 32-36 g/dL Red Cell Distribution Width 13.2 10.0-14.5 % Platelet Count 325 130-400 10^3/uL Mean Platelet Volume 9.7 9.0-12.2 fL Immature Granulocyte % (Auto) 0 % Neutrophils (%) (Auto) 31 L 42-75 % Lymphocytes (%) (Auto) 58 H 12-44 % Monocytes (%) (Auto) 8 0-12 % Eosinophils (%) (Auto) 3 0-10 % Basophils (%) (Auto) 0 0-10 % Neutrophils # (Auto) 2.8 1.8-7.8 X 10^3 Lymphocytes # (Auto) 5.4 H 1.0-4.0 X 10^3 Monocytes # (Auto) 0.7 0.0-1.0 X 10^3 Eosinophils # (Auto) 0.3 0.0-0.3 10^3/uL Basophils # (Auto) 0.0 0.0-0.1 10^3/uL Immature Granulocyte # (Auto) 0.0 0.0-0.1 10^3/uL Prothrombin Time 12.6 12.2-14.7 SEC INR Comment 0.9 0.8-1.4 Activated Partial Thromboplast Time 26 24-35 SEC D-Dimer < 0.27 0.00-0.49 UG/ML Sodium Level 140 135-145 MMOL/L Potassium Level 3.5 L 3.6-5.0 MMOL/L Chloride Level 105 98-107 MMOL/L Carbon Dioxide Level 24 21-32 MMOL/L Anion Gap 11 5-14 MMOL/L Blood Urea Nitrogen 15 7-18 MG/DL Creatinine 1.09 0.60-1.30 MG/DL Estimat Glomerular Filtration Rate 56 BUN/Creatinine Ratio 14 Glucose Level 126 H 70-105 MG/DL Calcium Level 9.7 8.5-10.1 MG/DL Corrected Calcium 9.5 8.5-10.1 MG/DL Total Bilirubin 0.5 0.1-1.0 MG/DL Aspartate Amino Transf (AST/SGOT) 25 5-34 U/L Alanine Aminotransferase (ALT/SGPT) 28 0-55 U/L Alkaline Phosphatase 78 40-136 U/L Troponin I < 0.028 <0.028 NG/ML Total Protein 8.0 6.4-8.2 GM/DL Albumin 4.3 3.2-4.5 GM/DL Glucometer 124 H 70-110 MG/DL My Orders Orders - J CARLOS GARCIA MD Cbc With Automated Diff (02/28/23 15:08) Protime With Inr (02/28/23 15:08) Partial Thromboplastin Time (02/28/23 15:08) Comprehensive Metabolic Panel (02/28/23 15:08) Fibrin Degradation Products (02/28/23 15:08) Troponin I Sandoval (02/28/23 15:08) Ua Culture If Indicated (02/28/23 15:08) Chest 1 View, Ap/Pa Only (02/28/23 15:08) Ekg Tracing (02/28/23 15:08) Nothing By Mouth (02/28/23 Dinner) Accucheck Stat ONCE (02/28/23 15:08) Ed Iv/Invasive Line Start (02/28/23 15:08) Ed Iv/Invasive Line Start (02/28/23 15:08) Vital Signs Stroke Patient Q15M (02/28/23 15:08) Ct Head Wo-R/O Stroke (02/28/23 15:08) O2 (02/28/23 15:08) Monitor-Rhythm Ecg Trace Only (02/28/23 15:08) Dysphagia Screening Tool Q10MX1 (02/28/23 15:08) Post Thrombolytic Adminstratio (02/28/23 15:08) Lipid Panel (03/01/23 06:00) Ct Angio Head/Neck (02/28/23 15:11) Iohexol Injection (Omnipaque 350 Mg/Ml 1 (02/28/23 15:30) Received Contrast (Hold Metformin- Contr (02/28/23 15:30) Ns (Ivpb) 100 Ml (Sodium Chloride 0.9% 1 (02/28/23 15:30) Vital Signs Stroke Patient Q15M (02/28/23 15:59) Dysphagia Screening Tool Q10MX1 (02/28/23 15:59) Tenecteplase (Tnkase) (02/28/23 16:00) Ondansetron Injection (Zofran Injectio (02/28/23 16:15) Ondansetron Injection (Zofran Injectio (02/28/23 16:15) Ed Admission (Communication) (02/28/23 16:40) Medications Given in ED Current Medications Medications Dose Ordered Sig/Dianne Route Start Time Stop Time Status Last Admin Dose Admin Iohexol 75 ml ONCE ONCE IV 02/28/23 15:30 02/28/23 15:31 DC 02/28/23 15:33 75 ML Ondansetron HCl 8 mg ONCE ONCE IVP 02/28/23 16:15 02/28/23 16:16 DC 02/28/23 16:14 8 MG Sodium Chloride 100 ml ONCE ONCE IV 02/28/23 15:30 02/28/23 15:31 DC 02/28/23 15:34 80 ML Tenecteplase 23.75 mg ONCE ONCE IV 02/28/23 16:00 02/28/23 16:01 DC 02/28/23 16:23 23.75 MG Vital Signs/I&O 02/28/23 02/28/23 15:11 16:23 Temp 35.6 Pulse 84 72 Resp 20 B/P (MAP) 178/89 (118) 143/82 Pulse Ox 96 O2 Delivery Room Air Blood Pressure Mean: 118 FSBG Bedside Testing Finger Stick Blood Glucose: 124 Blood Glucose Action Taken: INFORMED Progress Progress Note #1: Time: 16:18 Progress Note Patient was immediately identified as a possible stroke and was seen, interviewed, and examined in the exam room at 1506 before she was registered. Stroke activation was paged. I accompanied the patient to CT. CT was viewed immediately after acquired. I interpreted the noncontrast CT as negative for intracranial hemorrhage or masses at 1515. Patient denied any problems with iodine or renal insufficiency. CT angiogram was then pursued. CT angiogram demonstrated no large vessel occlusions, arterial dissections, or other acute pathologies. NIH stroke score was 4. 1 point was for left leg weakness which is an exacerbation of chronic leg weakness caused by radiation therapy as treatment for rectal cancer and from back surgery. She scored 2 points for ataxia with left leg [id number]-lswb and right [id number]. She had difficulty contacting my finger with right hipgvk-pj-dgsfzd exam but that may be due to the diplopia, not ataxia. Case was discussed with Dr. Miles, stroke neurologist at [facility]. She is concerned that the constellation of symptoms could represent posterior circulation stroke. She recommends tenecteplase administration. I reviewed options with the patient. We discussed risks and benefits of tenecteplase administration including the risk of up to a 6% possibility of life-threatening bleed. Patient denied any contraindications and requested tenecteplase, acknowledging the risks. participated in this shared decision making as well. She is presently receiving her tenecteplase dose. Case has been reviewed with Dr. Hector, hospitalist, who accepts admission. She will be admitted to the ICU. We discussed CODE STATUS and she would like to remain full code at this time. Progress Note #2: Time: 18:53 Progress Note Report was given to eICU. Patient is stable. Initial ECG Impression Date: Feb 28, 2023 Initial ECG Impression Time: 15:49 Initial ECG Rate: 76 Initial ECG Rhythm: Normal Sinus Initial ECG Intervals: Normal Initial ECG Impression: Normal Comment Normal sinus rhythm with no ST elevation or depression. No abnormal intervals or axis deviation. Critical Care Note Critical Care Start Time: 15:06 Stop Time: 18:53 Total Time (minutes) 40 Progress 40 minutes of critical care time was dedicated to this patient including assessment for acute stroke, exam, review of imaging directly and reports, discussion with stroke neurologist, discussion of plan with shared decision making regarding thrombolytic therapy with patient and family, and the ordering and administration of tenecteplase. Departure Communication (Admissions) Time/Spoke to Admitting Phy: 16:14 Dr. Hector Impression Primary Impression: Diplopia Additional Impressions: Nystagmus Dysarthria Disposition: ADMITTED INPATIENT Condition: Stable Admissions Decision to Admit Reason: Admit from ER (General) Decision to Admit/Date: Feb 28, 2023 Time/Decision to Admit Time: 16:14 Departure-Patient Inst. Referrals: CALEB BERNSTEIN MD (PCP/Family) Primary Care Physician Copy Copies To 1: CALEB BERNSTEIN MD, JOSHUA T MD Feb 28, 2023 16:16
[2023-02-28] MEDS ORDERED: ONDANSETRON 4 MG/2 ML (SDV) Z0FRAN IV PRN (19:30)
[2023-02-28] MEDS ORDERED: diphenhydrAMINE 25 MG TABLET PO PRN (19:30)
[2023-02-28] MEDS ORDERED: BISACODYL 10 MG SUPPOSITORY PR PRN (19:30)
[2023-02-28] MEDS ORDERED: ACETAMINOPHEN 325 MG TABLET PO PRN (19:30)
[2023-02-28] MEDS ORDERED: MELATONIN 3 MG TABLET PO PRN (19:30)
[2023-02-28] MEDS ORDERED: diphenhydrAMINE INJ 50 MG/ML VIAL IVP PRN (19:30)
[2023-02-28] MEDS ORDERED: MILK OF MAGNESIA 400 MG/5 ML 30 ML UDC PO PRN (19:30)
[2023-02-28] MEDS ORDERED: ONDANSETRON 4 MG (ZOFRAN) ORAL DISSOLVE TAB PO PRN (19:30)
[2023-02-28] MEDS ORDERED: LACTULOSE SYRUP 10GM/15ML (ENULOSE) 30ML UDC PO PRN (19:30)
[2023-02-28] MEDS ORDERED: ANTACID SUSP 30 ML UDC (MYLANTA) PO PRN (19:30)
[2023-02-28] MEDS ORDERED: polyethylene glycoL POWDER 17 GM (MIRALAX) PACK PO PRN (19:30)
[2023-02-28] MEDS ORDERED: hydrALAZINE (APESOLINE) 20 MG/ML VIAL IV PRN (19:30)
[2023-02-28] MEDS ORDERED: CALCIUM CARBONATE 500 MG CHEW TABLET PO PRN (19:30)
[2023-02-28] MEDS: SENNOSIDES 8.6 MG (SENOKOT) TAB PO SCH (20:53)
[2023-02-28] MEDS: DOCUSATE SODIUM 100 MG CAPSULE PO SCH (20:53)
[2023-02-28] MEDS: GABAPENTIN 300 MG (NEURONTIN) CAP PO SCH (21:01)
[2023-02-28] MEDS ORDERED: NS IV 500 ML 500 ML IV PRN (22:15)
[2023-03-01 04:31] LABS: BASOPHILS % (AUTO) 1 % (0-10); EOSINOPHILS # (AUTO) 0.2 10^3/uL (0.0-0.3); EOSINOPHILS % (AUTO) 3 % (0-10); HEMATOCRIT 37 % (35-52); HEMOGLOBIN 12.3 g/dL (11.5-16.0); LYMPHOCYTES # (AUTO) 2.4 10^3/uL (1.0-4.0); LYMPHOCYTES % (AUTO) 35 % (12-44); MEAN CORPUSCULAR HEMOGLOBIN 30 pg (25-34); MEAN CORPUSCULAR HGB CONC 33 g/dL (32-36); MEAN CORPUSCULAR VOLUME 91 fL (80-99); MEAN PLATELET VOLUME 10.9 fL (9.0-12.2); MONOCYTES # (AUTO) 0.6 10^3/uL (0.0-1.0); MONOCYTES % (AUTO) 9 % (0-12); NEUTROPHILS # (AUTO) 3.6 10^3/uL (1.8-7.8); NEUTROPHILS % (AUTO) 52 % (42-75); PLATELET COUNT 280 10^3/uL (130-400); WHITE BLOOD COUNT 6.8 10^3/uL (4.3-11.0)
[2023-03-01 04:51] LABS: POTASSIUM 3.8 MMOL/L (3.6-5.0)
[2023-03-01 04:52] LABS: CALCIUM 9.7 MG/DL (8.5-10.1)
[2023-03-01 04:57] LABS: CREATININE SERUM 1.03 MG/DL (0.60-1.30); PHOSPHORUS 4.2 MG/DL (2.3-4.7)
[2023-03-01 04:59] LABS: MAGNESIUM 2.2 MG/DL (1.6-2.4)
[2023-03-01] MEDS: POTASSIUM CL 10MEQ/50ML IVPB 50 ML IV SCH (05:08)
[2023-03-01] MEDS: KCL 20 MEQ TAB (K-DUR) PO SCH (05:09)
[2023-03-01] MEDS: MAGNESIUM 1 GM/100 ML IVPB 100 ML IV SCH (05:09)
[2023-03-01] MEDS ORDERED: KCL 20 MEQ TAB (K-DUR) PO ONE (06:00)
[2023-03-01] MEDS: DOCUSATE SODIUM 100 MG CAPSULE PO SCH ×2 (08:38→21:05)
[2023-03-01] MEDS: SENNOSIDES 8.6 MG (SENOKOT) TAB PO SCH ×2 (08:39→21:05)
--- NOTE | 2023-03-01 09:32 | Tele-ICU Consult ---
History of Present Illness History of Present Illness Date Seen by Provider: Mar 01, 2023 Time Seen by Provider: 09:31 Date of Admission (Tele-ICU Physician , consultation as per request of PCP Service provided via interactive audio and video telecommunications E-CARE system to a patient admitted to ICU bed in [facility]. Available chart/ vitals / labs / Images reviewed H&P is from ER notes Patient's information available about PMH, Shx, Fhx allergy reviewed inEMR. ROS as per chart and RN report Now in ICU, hemodynamically stable Video assessment done using teleICU camera, rest of exam as per RN Discussed with RN. Hospital course: (02/28) 67 y/o Female with Ischemic CVA S/P TNK. A/P Acute stroke -s/p IV tenecteplase 1sd per neuro @[facility] ( constellation of symptoms could represent posterior circulation stroke.) - symnptoms resolved today -neurocheck/NIHSS/VS monitoring per stroke order set protocol -BP controlled -f/up imaging pending -MRI -ECHO pending -Antithrombotic medication plan as per neuro/PCP Lines : periph , (Central Line Necessity Reviewed) Ho: void OG: Nutrition: po Analgesia: Anxiety/ delirium VTE Prophylaxis: scd off - ambulate Stress Ulcer Prophylaxis: na Plans in collaboration with bedside consultants and IM MDs. Discussed with RN to reach out if any questions or concerns A total of 20 minutes of critical care time was devoted to this patient today, required to treat and/or prevent further deterioration of critical care condition ( as above ) . I am remotely monitoring this patient from another state. I am unable to do the bedside exam, and history/physical and pertinent information is taken from other notes in the computer and bedside staff. . Allergies and Home Medications Allergies Coded Allergies: Sulfa (Sulfonamide Antibiotics) (Unverified Allergy, Unknown, 11/28/14) Tetanus Vaccines and Toxoid (Unverified Adverse Reaction, Mild, 11/28/14) ADVERSE REACTION TO ONE 34 YRS AGO Home Medications Acetaminophen 500 Mg Tablet, 1,000 MG PO DAILY PRN for PAIN, (Reported) Amitriptyline HCl 50 Mg Tablet, 50 MG PO HS, (Reported) Atorvastatin Calcium 20 Mg Tablet, 20 MG PO HS Prescribed by: BREONNA JAMES on 01/01/16 0840 Hydrocodone/Ibuprofen 1 Each Tablet, 1-2 TAB PO Q4H PRN for PAIN-MODERATE Prescribed by: SEAN FRY on 11/01/19 1300 Nitrofurantoin Monohyd/M-Cryst 100 Mg Capsule, 1 TAB PO BID Prescribed by: SEAN FRY on 11/01/19 1300 Ondansetron 8 Mg Tab.rapdis, 8 MG PO Q6H Prescribed by: SEAN FRY on 11/01/19 1300 Phenazopyridine HCl 200 Mg Tablet, 1 TAB PO TID Prescribed by: SEAN FRY on 11/01/19 1300 Tamsulosin HCl 0.4 Mg Cap, 0.4 MG PO DAILY Prescribed by: SEAN FRY on 11/01/19 1300 Past Medical/Social/Family Hx Patient Social History Tobacco Use?: No Substance use?: No Alcohol Use?: No Immunizations Up To Date Hepatitis A: No Hepatitis B: No TB Skin Test: Negative Current Status Primary Language: Chilean Preferred Spoken Language: Chilean Family Medical History Family Hx: PSH: -COLONOSCOPIES -COLON RESECTION -LAP CHOLECYSTECTOMY -LUMBAR SPINAL FUSION - Review of Systems Constitutional: see HPI Focused Exam Height, Weight, BMI Height: 5'6.00" Weight: 215lbs. 2.0oz. 97.052580bh; 36.31 BMI Method:Stated Exam Exam Patient acknowledged, consented, and participated in this virtual visit which was conducted using real time audio/video Vital Signs Date Time Temp Pulse Resp B/P (MAP) Pulse Ox O2 Delivery O2 Flow Rate FiO2 03/01/23 09:00 68 19 132/69 (90) 97 Room Air 03/01/23 08:00 71 11 121/66 (84) 98 Room Air 03/01/23 07:00 63 10 118/68 (85) 98 Room Air 03/01/23 07:00 66 03/01/23 06:00 65 17 126/63 (84) 96 Room Air 03/01/23 05:00 64 11 114/63 (80) 95 Room Air 03/01/23 04:37 37.0 03/01/23 04:35 98 Room Air 03/01/23 04:00 66 10 112/50 (70) 98 Room Air 03/01/23 03:00 66 13 113/54 (73) 92 Room Air 03/01/23 02:00 67 36 112/63 (79) 95 Room Air 03/01/23 01:00 66 03/01/23 01:00 67 110/52 (71) 98 Room Air 03/01/23 00:08 95 Room Air 03/01/23 00:05 36.8 03/01/23 00:00 66 17 102/53 (69) 94 Room Air 02/28/23 23:00 68 105/48 (67) 92 Room Air 02/28/23 22:00 80 132/77 (95) 95 Room Air 02/28/23 21:00 81 137/91 (106) 96 Room Air 02/28/23 20:53 98 Room Air 02/28/23 20:08 36.9 02/28/23 20:00 72 13 96 Room Air 02/28/23 20:00 99 Room Air 02/28/23 19:00 75 26 153/74 (100) 97 Room Air 02/28/23 19:00 70 02/28/23 18:45 36.8 68 20 153/74 (100) 99 Room Air 02/28/23 18:43 71 02/28/23 18:40 96 Room Air 02/28/23 18:40 37.1 74 20 117/67 96 Room Air 02/28/23 16:23 72 143/82 02/28/23 15:11 35.6 84 20 178/89 (118) 96 Room Air I & O 03/01/23 07:00 Intake Total 600 ml Output Total 1200 ml Balance -600 ml Height & Weight Height: 5'6.00" Weight: 215lbs. 2.0oz. 97.751472bn; 36.31 BMI Method:Stated General Appearance: Other Capillary Refill: Less Than 3 Seconds Gastrointestinal: soft; No distended Results Lab Laboratory Tests 02/28/23 15:10 03/01/23 03:50 Assessment/Plan Assessment/Plan `1 TALISHA RICO MD Mar 01, 2023 09:31
--- NOTE | 2023-03-01 09:40 | Speech Therapy Progress Note ---
Therapy Progress Note Speech pathology attempted the evaluation at 09. At this time, the patient is seated edge of bed with her present. The patient recently "passed" the RN Dysphagia Screening and is receiving a regular consistency diet with thin liquids. The patient denied any swallowing concerns or difficulties at this time. Additionally, the patient and spouse report the patient's speech and language have returned to "normal." Per patient, "Any weakness I had is back to where it was before." Skilled ST services not warranted at this time. TRUDY GARCIA Mar 01, 2023 09:40
--- NOTE | 2023-03-01 10:35 | Occupational Therapy Eval ---
OT Evaluation-General/PLF Medical Diagnosis Admission Date Feb 28, 2023 at 18:26 Medical Diagnosis: Ischemic CVA S/P TNK. Onset Date: Feb 28, 2023 Therapy Diagnosis Therapy Diagnosis: general weakness Height/Weight Height (Feet): 5 Height (Inches): 6.00 Weight (Pounds): 215 Weight (Ounces): 2.0 Precautions Precautions/Isolations: Fall Prevention, Standard Precautions Referral Referral Reason: Activity Tolerance, Self Care, Evaluation/Treatment, Strengthening/ROM Medical History Pertinent Medical History: Arthritis, HTN, Neuropathy Reviewed History: Yes Social History Home: Multilevel (08/01 story house, BR used in winter upstairs) Current Living Status: Spouse (Doroteo) Entry Into Home: Stairs With Railing Steps Into Home: 6 (wide w/ 4 inch rise) Daughter and 3 grandchildren help when needed ADL-Prior Level of Function SCALE: Activities may be completed with or without assistive devices. 5-Kgkoohcgux-tnxzrvj completes the activity by him/herself with no assistance from a helper. 5-Set-up or Clean-up Assistance-helper sets up or cleans up; patient completes activity. [place] assists only prior to or following the activity. 4-Supervision or Touching Assistance-helper provides verbal cues and/or touching/steadying and/or contact guard assistance as patient completes activity. Assistance may be provided throughout the activity or intermittently. 3-Partial/Moderate Assistance-helper does LESS THAN HALF the effort. [place] lifts, holds or supports trunk or limbs, but provides less than half the effort. 2-Substantial/Maximal Assistance-helper does MORE THAN HALF the effort. [place] lifts or holds trunk or limbs and provides more than half the effort. 3-Dkxpmvywa-vbnwln does ALL the effort. Patient does none of the effort to complete the activity. Or, the assistance of 2 or more helpers is required for the patient to complete the activity. If activity was not attempted, code reason: 7-Patient Refused. 9-Not Applicable-not attempted and the patient did not perform the activity before the current illness, exacerbation or injury. 10-Not Attempted due to Environmental Limitations-(lack of equipment, weather restraints, etc.). 88-Not Attempted due to Medical Conditions or Safety Concerns. Self Care: Independent Functional Cognition: Independent DME/Equipment: Bath Chair, Tub/Shower (looking to remodel) Drive Self: Yes ( but doesn't drive d/t feet neuropathy) OT Current Status Subjective Agreeable to OT, present Pain Numeric Pain Scale: 0-No Pain Mental Status/Objective Patient Orientation: Person, Place, Time, Situation Attachments: Telemetry, Other-See Comments (BP cuff, 02 monitor) Current Glasses/Contacts: Yes Hearing Aids: No Dentures/Partials: No Hand Dominance: Right Upper Extremity ROM BUE ROM WFLS Upper Extremity Coordination intact WFLs Upper Extremity Sensation WFL has neuropathy Upper Extremity Strength +3/5 proximal. -4% distal ADL-Treatment Eating (QC): 6 Oral Hygiene (QC): 6 Shower/Bathe Self (QC): 88 Upper Body Dressing (QC): 5 (d/t multiple lines) Lower Body Dressing (QC): 5 On/Off Footwear (QC): 6 Toileting Hygiene (QC): 5 Education OT Patient Education: Correct positioning, Modified ADL techniques, Progress toward Goal/Update tx plan, Purpose of tx/functional activities, Reviewed precautions, Rehab process, Safety issues, Transfer techniques Teaching Recipient: Patient, Family Response to Teaching: Return Demonstration OT Snf Goals Blasting Contract Man Goals 1=Demonstrate adherence to instructed precautions during ADL tasks. 2=Patient will verbalize/demonstrate understanding of assistive devices/modifications for ADL. 3=Patient will improve strength/tolerance for activity to enable patient to perform ADL's. OT Education/Plan Problem List/Assessment Assessment: No Skilled OT Needs ID'd Discharge Recommendations Plan/Recommendations: Discontinue OT (Patient at baseline) Treatment Plan/Plan of Care Patient would benefit from OT for education, treatment and training to promote independence in ADL's, mobility, safety and/or upper extremity function for ADL's. Plan of Care: OTHER (EVAL only) Treatment Duration: Mar 01, 2023 Frequency: 1 time per week Estimated Hrs Per Day: .25 hour per day Agreement: Yes Rehab Potential: Good Up in relined position on bed, attentive to company, all needs met Time Start Time: 10:30 Stop Time: 10:45 DATE: Mar 01, 2023 Total Time Billed (hr/min): 15 Billed Treatment Time EVL 15 min KETURAH CAMPBELL OT Mar 01, 2023 10:35
--- NOTE | 2023-03-01 11:58 | Physical Therapy Evaluation ---
PT Evaluation-General Medical Diagnosis Admission Date Feb 28, 2023 at 18:26 Medical Diagnosis: Ischemic CVA S/P TNK. Onset Date: Feb 28, 2023 Therapy Diagnosis Therapy Diagnosis: Gait deficit, strength deficit Height/Weight Height (Feet): 5 Height (Inches): 6.00 Weight (Pounds): 215 Weight (Ounces): 2.0 Precautions Precautions/Isolations: Fall Prevention, Standard Precautions Weight Bear Status Right Lower Extremity: Right Full Weight Bearing Left Lower Extremity: Left Full Weight Bearing Referral Physician: Dr. Hector Reason for Referral: Evaluation/Treatment Medical History Pertinent Medical History: Arthritis, HTN, Neuropathy Reviewed History: Yes Social History Home: Multilevel (08/01 story house, BR used in winter upstairs) Current Living Status: Spouse (Doroteo) Entry Into Home: Stairs With Railing PT Steps Into Home: 6 (wide w/ 4 inch rise) Prior Prior Level of Function SCALE: Activities may be completed with or without assistive devices. 3-Fconledmky-zviwepl completes the activity by him/herself with no assistance from a helper. 5-Set-up or Clean-up Assistance-helper sets up or cleans up; patient completes activity. [place] assists only prior to or following the activity. 4-Supervision or Touching Assistance-helper provides verbal cues and/or touching/steadying and/or contact guard assistance as patient completes activi ty. Assistance may be provided throughout the activity or intermittently. 3-Partial/Moderate Assistance-helper does LESS THAN HALF the effort. [place] lifts, holds or supports trunk or limbs, but provides less than half the effort. 2-Substantial/Maximal Assistance-helper does MORE THAN HALF the effort. [place] lifts or holds trunk or limbs and provides more than half the effort. 0-Vqabitixk-ywfvnb does ALL the effort. Patient does none of the effort to complete the activity. Or, the assistance of 2 or more helpers is required for the patient to complete the activity. If activity was not attempted, code reason: 7-Patient Refused. 9-Not Applicable-not attempted and the patient did not perform the activity before the current illness, exacerbation or injury. 10-Not Attempted due to Environmental Limitations-(lack of equipment, weather restraints, etc.). 88-Not Attempted due to Medical Conditions or Safety Concerns. Bed Mobility: 6 Transfers (B,C,W/C): 6 Gait: 6 Stairs: 4 Indoor Mobility (Ambulation): Independent Stairs: Needed Some Help Prior Devices Use: Walker PT Evaluation-Current Subjective Patient lying supine in bed upon PT arrival, agreeable to treatment. Patient rates pain currently at 0/10. Patient reports she had chemo a few years ago and has had numbness in her feet since then. Patient reports she was given a prescription for AFOs, but has not followed up on this, however realizes she needs them. Patient reports she has a cane and FWW that she uses at home, but typically "wall walks". Objective Patient Orientation: Person, Place, Time, Situation ROM/Strength ROM Lower Extremities Bilateral ankles limited to 10 degrees from neutral; all other BLEs planes WFLs. Strength Lower Extremities Bilateral ankles 2/5. All other BLEs 3+/5 all planes. Sensory Vision: Functional Hearing: Functional Hand Dominance: Right Sensation Right Lower Extremit: Impaired Sensation Left Lower Extremity: Impaired Sensation Lower Extremities Decreased sensation in bilateral feet, Right worse than left. Transfers Roll Left to Right (QC): 4 Sit to Lying (QC): 4 Lying to Sitting/Side of Bed(Q: 4 Sit to Stand (QC): 4 Chair/Tpb-ks-Pisct Xfer(QC): 4 Gait Does the Patient Walk?: Yes Mode of Locomotion: Walk Anticipated Mode of Locomotion: Walk Walk 10 feet (QC): 4 Walk 50 ft with 2 Turns(QC): 4 Walk 150 ft (QC): 4 Distance: 160' Gait Assistive Device: FWW Balance Sitting Static: Good Sitting Dynamic: Good Standing Static: Fair Standing Dynamic: Fair Assessment/Needs Patient tolerated treatment fair. Performs all observed bed mobility and transfers with SBA. Patient ambulates 160 feet with FWW, with CGA and verbal cues for safety and conservation of energy. Patient ambulates with excessive bilateral hip flexion to clear foot during swing phase. Patient was educated that the AFOs would benefit this and could improve overall balance, gait and safety. Patient in bed post treatment with all needs met, nursing notified, call light in hand. Rehab Potential: Fair PT [facility] Goals Analytical Technician Goals PT [facility] Goals Time Frame: Mar 30, 2023 Roll Left & Right (QC): 6 Sit to Lying (QC): 6 Lying-Sitting on Side/Bed(QC): 6 Sit to Stand (QC): 6 Chair/Syx-or-Stwgq Xfer(QC): 6 Toilet Transfer (QC): 6 Does the Patient Walk: Yes Walk 10 feet (QC): 6 Walk 50ft with 2 Turns (QC): 6 Walk 150 ft (QC): 6 1 Step (curb) (QC): 4 4 Steps (QC): 4 12 Steps (QC): 4 PT Plan Problem List Problem List: Activity Tolerance, Functional Strength, Safety, Balance, Gait, Transfer, Bed Mobility, ROM Treatment/Plan Treatment Plan: Continue Plan of Care Treatment Plan: Bed Mobility, Education, Functional Activity Abby, Functional Strength, Group Therapy, Gait, Safety, Therapeutic Exercise, Transfers Treatment Duration: Mar 30, 2023 Frequency: 6 times per week Estimated Hrs Per Day: .25 hour per day Patient and/or Family Agrees t: Yes Safety Risks/Education Patient Education: Gait Training, Transfer Techniques Teaching Recipient: Patient, Family Teaching Methods: Demonstration, Discussion Response to Teaching: Verbalize Understanding, Return Demonstration Time Time In: 1115 Time Out: 1136 DATE: Mar 01, 2023 Total Billed Treatment Time: 21 Total Billed Treatment Visit, JOSÉ MIGUEL NGUYEN PT Mar 01, 2023 11:58
[2023-03-01] MEDS ORDERED: ATOR20TA66 PO (13:45)
[2023-03-01] MEDS ORDERED: SPIR1TAB3 PO (13:45)
[2023-03-01] MEDS ORDERED: ZINC50TA11 PO (13:45)
[2023-03-01] MEDS ORDERED: CRAN400C PO (13:45)
[2023-03-01] MEDS ORDERED: CYAN-41 PO (13:45)
[2023-03-01] MEDS ORDERED: APPLE CIDER VINEGAR PO (13:45)
[2023-03-01] MEDS ORDERED: CHOL-34 PO (13:45)
[2023-03-01] MEDS ORDERED: GABA300C PO (13:45)
[2023-03-01] MEDS ORDERED: LOPE-134 PO (13:45)
[2023-03-01] MEDS ORDERED: IBUP-2473 PO (13:45)
--- NOTE | 2023-03-01 17:02 | Diagnostic Imaging Report ---
PROCEDURE: MR imaging of the brain without contrast. TECHNIQUE: Multiplanar, multisequence MR imaging of the brain was performed without contrast. INDICATION: Nausea. Dizziness. 24 hours post TPA. COMPARISON: CTA head and neck on 02/28/2023. FINDINGS: No acute ischemia, mass, or hemorrhage. Scattered focal T2 hyperintense signal seen in the periventricular and subcortical white matter. The ventricles, cortical sulci, and basilar cisterns are symmetric and unremarkable. The sellar and suprasellar regions have a normal appearance. The brainstem and posterior fossa are unremarkable. Small mucous retention cysts are seen bilaterally. The mastoid air cells demonstrate normal signal characteristics. Left-sided lens implant is noted. The scalp and calvarium have a normal appearance. IMPRESSION: 1. No acute ischemia, mass, or hemorrhage. 2. Scattered T2 hyperintense signal in the periventricular and subcortical white matter. Findings are most suggestive of chronic microvascular disease. Dictated by: Dictated on workstation # [id number]
--- NOTE | 2023-03-01 17:03 | Diagnostic Imaging Report ---
PROCEDURE: CT head without contrast. TECHNIQUE: Multiple contiguous axial images were obtained through the brain without the use of intravenous contrast. Auto Exposure Controls were utilized during the CT exam to meet ALARA standards for radiation dose reduction. INDICATION: Nausea. COMPARISON: Brain MRI on 03/01/2023. FINDINGS: No acute cranial hemorrhage. No large vascular territorial loss. Ventricles and cortical sulci are normal. No intracranial mass or fluid collection. Ventricles and cortical sulci are normal. Paranasal sinuses and mastoids are clear. Globes and orbits are normal. The skull intact. IMPRESSION: No acute intracranial hemorrhage. No large vascular territory cshaefer-white loss. No intracranial mass, midline shift, or hydrocephalus. Dictated by: Dictated on workstation # [id number]
[2023-03-01 17:52] VITALS: BP 122/80
--- NOTE | 2023-03-01 18:12 | History & Physical-Hospitalist ---
History of Present Illness HPI/Chief Complaint Annalise Dowling is a 67 year old female with PMH HTN, HLD, history of CVA, obesity, who was admitted with stroke like symptoms. She was having dizziness. She also complained of diplopia. She was having nausea. Her speech was slowed according to her . Upon my exam her symptoms have completely resolved. She was given tPA in the emergency room. She denies weakness. She denies speech difficulty. She denies swallowing issues. She denies vision issues. She reports she has returned to her baseline. Source: patient Exam Limitations: no limitations Date Seen 03/01/23 Time Seen by a Provider: 09:40 Attending Physician Fernando Bernstein MD PCP Admitting Physician: Anita Huang MD Attending Physician: Anita Huang MD Referring Physician Date of Admission Feb 28, 2023 at 18:26 Home Medications & Allergies Home Medications Reviewed patient Home Medication Reconciliation performed by pharmacy medication reconciliations environmental engineering technician and/or nursing. Patients Allergies have been reviewed. Allergies Allergies Coded Allergies Sulfa (Sulfonamide Antibiotics) (Unverified Allergy, Unknown, 11/28/14) Tetanus Vaccines and Toxoid (Unverified Adverse Reaction, Mild, 11/28/14) ADVERSE REACTION TO ONE 34 YRS AGO Past Jlslsfs-Xkkcau-Zkhloi Hx Patient Social History Tobacco Use?: No Substance use?: No Alcohol Use?: No Immunizations Up To Date Hepatitis A: No Hepatitis B: No PED Vaccines UTD: Yes Seasonal Allergies Seasonal Allergies: Yes Current Status Primary Language: Canadian Preferred Spoken Language: [place] Past Medical History Surgeries: Abdominal, Bowel Surgery, Section, Gallbladder, Orthopedic High Cholesterol, Hypertension Neuropathy, Stroke [employer] History: Menopausal Sexually Transmitted Disease: No HIV/AIDS: No Neurogenic Bladder Gall Bladder Disease Degenerate Disk Disease, Arthritis, Back Injury, Foot Drop, Chronic Back Pain Loss of Vision: Denies Hearing Impairment: Denies Rectal, Colon Did You Recieve Any Treatments: Yes What Type of Treatment Did You: Chemotherapy, Radiation, Surgical Intervention Anxiety Blood Disorders: No Family Medical History Arthritis Asthma Cataracts Deafness or hearing loss Dementia Diabetes mellitus Fibrocystic disease of breast Gastroenteritis Headache disorder Hypercholesterolemia Hypertension Myocardial infarction Osteoporosis Parkinson's disease Psychosocial problem Thyroid disease Visual disorder No Family History of: AIDS Abdominal aortic aneurysm [place]'s disease Alcoholism Alzheimer's disease Aphasia Cancer of mouth Cardiovascular disease Colon cancer Completed stroke Congenital disease Congenital heart disease Coronary thrombosis Cystic fibrosis Drug abuse Dysphasia Glaucoma Infertility Kidney disease Not obtainable due to adoption Prostate cancer Respiratory disorder Seizure disorder Severe allergy Tuberculosis PSH: -COLONOSCOPIES -COLON RESECTION -LAP CHOLECYSTECTOMY -LUMBAR SPINAL FUSION - Review of Systems Constitutional: dizziness EENTM: double vision Respiratory: no symptoms reported Cardiovascular: no symptoms reported Gastrointestinal: nausea Physical Exam Physical Exam Vital Signs Vital Signs - First Documented 02/28/23 15:11 Temp 35.6 Pulse 84 Resp 20 B/P (MAP) 178/89 (118) Pulse Ox 96 O2 Delivery Room Air Capillary Refill : Less Than 3 Seconds Height, Weight, BMI Height: 5'6.00" Weight: 215lbs. 2.0oz. [id number]; 36.31 BMI Method:Stated General Appearance: No Apparent Distress, Obese HEENT: PERRL/EOMI, Pharynx Normal Neck: Normal Inspection Respiratory: Lungs Clear, No Respiratory Distress Cardiovascular: Regular Rate, Rhythm, No Murmur Gastrointestinal: Normal Bowel Sounds, Soft Extremity: Normal Inspection, Pedal Edema Neurologic/Psychiatric: Alert, Normal Mood/Affect, Sensory Deficit (peripheral neuropathy) Skin: Normal Color, Warm/Dry Results Results/Procedures Labs Laboratory Tests 02/28/23 15:10 03/01/23 03:50 Patient resulted labs reviewed. Imaging: Reviewed Imaging Report Assessment/Plan Admission Diagnosis Acute ischemic stroke Admission Status: Inpatient Order (span 2 midnights) Reason for Inpatient Admission: Stroke Assessment and Plan Acute ischemic stroke History of CVA Recurrent cryptogenic stroke CT head negative s/p tPA Repeat CT head at 24 hours post-tPA MRI ordered Echo without shunt CTA without evidence of significant stenosis Consult Cardiology, may benefit from loop recorder PT/OT HTN HLD Obesity Continue home meds as able DVT prophylaxis: Lovenox ANITA HUANG MD Mar 01, 2023 18:12
[2023-03-01] MEDS ORDERED: ENOXAPARIN 40 MG/0.4 ML SYRINGE SC SCH (19:00)
[2023-03-01] MEDS: SPIRONOLACTONE 25 MG (ALDACTONE) TAB PO SCH (19:00)
[2023-03-01 20:00] VITALS: BP 139/79
[2023-03-01] MEDS: GABAPENTIN 300 MG (NEURONTIN) CAP PO SCH (21:04)
[2023-03-02 00:29] VITALS: BP 121/60
[2023-03-02 03:54] VITALS: BP 117/68
[2023-03-02 05:41] LABS: BASOPHILS # (AUTO) 0.1 10^3/uL (0.0-0.1); BASOPHILS % (AUTO) 1 % (0-10); EOSINOPHILS # (AUTO) 0.2 10^3/uL (0.0-0.3); EOSINOPHILS % (AUTO) 4 % (0-10); HEMATOCRIT 38 % (35-52); HEMOGLOBIN 12.5 g/dL (11.5-16.0); LYMPHOCYTES # (AUTO) 2.6 10^3/uL (1.0-4.0); LYMPHOCYTES % (AUTO) 46 % (12-44); MEAN CORPUSCULAR HEMOGLOBIN 30 pg (25-34); MEAN CORPUSCULAR HGB CONC 33 g/dL (32-36); MEAN CORPUSCULAR VOLUME 92 fL (80-99); MEAN PLATELET VOLUME 10.2 fL (9.0-12.2); MONOCYTES # (AUTO) 0.5 10^3/uL (0.0-1.0); MONOCYTES % (AUTO) 9 % (0-12); NEUTROPHILS # (AUTO) 2.3 10^3/uL (1.8-7.8); NEUTROPHILS % (AUTO) 40 % (42-75); PLATELET COUNT 285 10^3/uL (130-400); WHITE BLOOD COUNT 5.7 10^3/uL (4.3-11.0)
[2023-03-02] MEDS: MAGNESIUM 1 GM/100 ML IVPB 100 ML IV SCH (05:54)
[2023-03-02] MEDS: POTASSIUM CL 10MEQ/50ML IVPB 50 ML IV SCH (05:54)
[2023-03-02 05:57] LABS: POTASSIUM 3.9 MMOL/L (3.6-5.0)
[2023-03-02 05:58] LABS: CALCIUM 9.6 MG/DL (8.5-10.1)
[2023-03-02 06:02] LABS: CREATININE SERUM 1.14 MG/DL (0.60-1.30)
[2023-03-02] MEDS: KCL 20 MEQ TAB (K-DUR) PO SCH (06:15)
[2023-03-02 07:32] VITALS: BP 101/67
[2023-03-02] MEDS ORDERED: KCL 20 MEQ TAB (K-DUR) PO ONE (08:00)
--- NOTE | 2023-03-02 08:01 | Physical Therapy Progress Note ---
Therapy Progress Note Patient reports she is up independently and declined continued need for skilled PT. PT to dismiss patient from services at this time. Patient did mention that she plans on getting an appointment for bilateral AFO's. JUAN MANUEL SUAREZ PT Mar 02, 2023 08:01
[2023-03-02] MEDS: SPIRONOLACTONE 25 MG (ALDACTONE) TAB PO SCH (08:02)
[2023-03-02] MEDS: DOCUSATE SODIUM 100 MG CAPSULE PO SCH (08:02)
[2023-03-02] MEDS: SENNOSIDES 8.6 MG (SENOKOT) TAB PO SCH (08:02)
--- NOTE | 2023-03-02 08:05 | Consultation-Cardiology ---
HPI-Cardiology Cardiology Consultation: Date of Consultation 03/02/23 Time Seen by a Provider: 10:20 Date of Admission 03-01-23 Attending Physician Fernando Bernstein MD Admitting Physician Admitting Physician: Alena Huang MD Attending Physician: Alena Huang MD Consulting Physician Logan Ramsey MD HPI: Chief Complaint: Crytpogenic CVA Ms. Nelson is a 67 yr old female admitted to 430 from the ED d/t CVA. She reports yesterday she developed "factured" vision reporting that it was like looking through broken glass. She report dizziness, nausea, emesis, dis-equalibrium while sitting. She states the symptoms were nearly exactly the same as at the time of her CVA in 2016. She denies any c/o CP, palpitations, SOB. She denies any syncope or near syncope. She has chronic bilat LE swelling which is unchanged in the recent past. She states she is feeling back to her baseline. She denies any weakness in her extremities, dysphagia or difficulty speaking. She reports since her last stroke she has had episodes of vision changes that last for a few seconds. She states she was on ASA tx, but it was stopped by her PCP d/t blood in her stool several yrs ago. Review of Systems-Cardiology Review of Systems Constitutional: no symptoms reported; No chills, No fever Eyes: As described under HPI Ears/Nose/Throat: As described under HPI Respiratory: As described under HPI Cardiovascular: As described under HPI Gastrointestinal: As described under HPI Genitourinary: No dysuria, No hematuria : No Musculoskeletal: no symptoms reported Skin: No rash on exposed areas, No ulcerations on exposed areas Psychiatric/Neurological: As described under HPI Hematologic: No bleeding abnormalities ISL-Dqgiat-Pmyscs Hx Patient Social History Former smoker/When Quit: November 29, 1991 Alcohol Use?: No Immunizations Up To Date Tetanus Booster (TDap): More than 5yrs Past Medical History PMH As described under Assessment. Family Medical History Family Medical History: Vague h/o of possible NV in father at early age although subsequent cath did not show CAD, according to Ms Nelson Family History: Arthritis Asthma Cataracts Deafness or hearing loss Dementia Diabetes mellitus Fibrocystic disease of breast Gastroenteritis Headache disorder Hypercholesterolemia Hypertension Myocardial infarction Osteoporosis Parkinson's disease Psychosocial problem Thyroid disease Visual disorder No Family History of: AIDS Abdominal aortic aneurysm [place]'s disease Alcoholism Alzheimer's disease Aphasia Cancer of mouth Cardiovascular disease Colon cancer Completed stroke Congenital disease Congenital heart disease Coronary thrombosis Cystic fibrosis Drug abuse Dysphasia Glaucoma Infertility Kidney disease Not obtainable due to adoption Prostate cancer Respiratory disorder Seizure disorder Severe allergy Tuberculosis Allergies and Home Medications Allergies Coded Allergies: Sulfa (Sulfonamide Antibiotics) (Unverified Allergy, Unknown, 11/28/14) Tetanus Vaccines and Toxoid (Unverified Adverse Reaction, Mild, 11/28/14) ADVERSE REACTION TO ONE 34 YRS AGO Patient Home Medication List Amitriptyline HCl (Amitriptyline HCl) 50 Mg Tablet, 50 MG PO HS, (Reported) Entered as Reported by: GLEN SILVA on 12/31/15 0835 Last Action: Reviewed Aspirin (Aspirin) 81 Mg Tab.chew, 81 MG PO DAILY Prescribed by: ALENA HUANG on 03/02/23 102 Atorvastatin Calcium (Atorvastatin Calcium) 40 Mg Tablet, 40 MG PO HS Prescribed by: ALENA HUANG on 03/02/23 1023 Cholecalciferol (Vitamin D3) (Vitamin D3) 25 Mcg (1000 Unit) Tablet, 25 MCG PO HS, (Reported) Entered as Reported by: SARAN JEAN-BAPTISTE on 03/01/231344 Last Action: Reviewed Cranberry (Cranberry) 400 Mg Capsule, 400 MG PO HS, (Reported) Entered as Reported by: SARAN JEAN-BAPTISTE on 03/01/231344 Last Action: Reviewed Cyanocobalamin (Vitamin B-12) (Vitamin B-12) 1,000 Mcg Tablet, 1,000 MCG PO HS, (Reported) Entered as Reported by: SARAN JEAN-BAPTISTE on 03/01/231344 Last Action: Reviewed Gabapentin (Neurontin) 300 Mg Capsule, 300 MG PO HS, (Reported) Entered as Reported by: SARAN JEAN-BAPTISTE on 03/01/231344 Last Action: Reviewed Ibuprofen (Ibuprofen) 200 Mg Tablet, 400 MG PO HS, (Reported) Entered as Reported by: SARAN JEAN-BAPTISTE on 03/01/231344 Last Action: Reviewed Loperamide HCl (Imodium A-D) 2 Mg Tablet, 2-4 MG PO UD PRN for DIARRHEA, (Rep orted) Entered as Reported by: SARAN JEAN-BAPTISTE on 03/01/231344 Last Action: Reviewed Spironolact/Hydrochlorothiazid (Spironolactone-Hctz 25-25 Tab) 25 Mg-25 Mg Tablet, 2 EA PO DAILY, (Reported) Entered as Reported by: SARAN JEAN-BAPTISTE on 03/01/231344 Last Action: Reviewed Zinc Gluconate (Zinc) 50 Mg Tablet, 50 MG PO HS, (Reported) Entered as Reported by: SARAN JEAN-BAPTISTE on 03/01/231344 Last Action: Reviewed [Apple Cider Vinegar] , 1 EA PO HS, (Reported) Entered as Reported by: SARAN JEAN-BAPTISTE on 03/01/231344 Last Action: Reviewed Discontinued Medications Acetaminophen (Acetaminophen) 500 Mg Tablet, 1,000 MG PO DAILY PRN for PAIN, (Reported) Discontinued Reason: No Longer Taking Entered as Reported by: GLEN SILVA on 12/31/15 0835 Last Action: Discontinued Atorvastatin Calcium (Atorvastatin Calcium) 20 Mg Tablet, 20 MG PO HS Discontinued Reason: No Longer Taking Prescribed by: BREONNA JAMES on 01/01/16 0851 Last Action: Discontinued Atorvastatin Calcium (Atorvastatin Calcium) 20 Mg Tablet, 20 MG PO HS, (Reported) Discontinued Reason: Prescription changed Entered as Reported by: SARAN JEAN-BAPTISTE on 03/01/231344 Last Action: Reviewed Hydrocodone/Ibuprofen (Hydrocodone-Ibuprofen 7.5-200) 1 Each Tablet, 1-2 TAB PO Q4H PRN for PAIN-MODERATE Discontinued Reason: No Longer Taking Prescribed by: SEAN FRY on 11/01/191299 Last Action: Discontinued Nitrofurantoin Monohyd/M-Cryst (Macrobid 100 mg Capsule) 100 Mg Capsule, 1 TAB PO BID Discontinued Reason: No Longer Taking Prescribed by: SEAN FRY on 11/01/191299 Last Action: Discontinued Ondansetron (Ondansetron Odt) 8 Mg Tab.rapdis, 8 MG PO Q6H Discontinued Reason: No Longer Taking Prescribed by: SEAN FRY on 11/01/191299 Last Action: Discontinued Phenazopyridine HCl (Pyridium) 200 Mg Tablet, 1 TAB PO TID Discontinued Reason: No Longer Taking Prescribed by: SEAN FRY on 11/01/191299 Last Action: Discontinued Tamsulosin HCl (Flomax) 0.4 Mg Cap, 0.4 MG PO DAILY Discontinued Reason: No Longer Taking Prescribed by: SEAN FRY on 4/3/20 1300 Last Action: Discontinued Physical Exam-Cardiology Physical Exam Vital Signs/I&O 03/02/23 03/02/23 03/02/23 03/02/23 01:00 03:54 07:00 07:32 Temp 36.0 Pulse 65 68 66 70 Resp 16 17 B/P (MAP) 117/68 (84) 101/67 (78) Pulse Ox 93 94 O2 Delivery Room Air Room Air 03/02/23 08:40 O2 Delivery Room Air 03/02/23 00:00 Intake Total 1000 ml Output Total 500 ml Balance 500 ml Capillary Refill : Less Than 3 Seconds Constitutional: AAO x 3, well-developed, well-nourished HEENT: PERRL, hearing is well preserved, oral hygience is good Neck: No carotid bruit; carotid pulses are 2 + bilaterally Respiratory: No accessory muscle use, No respiratory distress; chest expansion is symmetric, chest is bilaterally symmetric, lungs clear to auscultation Cardiovascular: regular rate-rhythm; No JVD; S1 and S2 Gastrointestinal: No tender; soft, round, audible bowel sounds Extremities: other (mod bilat LE swelling) Neurologic/Psychiatric: other (moves all extremities) Skin: No rash on exposed areas, No ulcerations on exposed areas Data Review Labs Laboratory Tests 03/02/23 05:10: White Blood Count 5.7, Red Blood Count 4.13, Hemoglobin 12.5, Hematocrit 38, Mean Corpuscular Volume 92, Mean Corpuscular Hemoglobin 30, Mean Corpuscular Hemoglobin Concent 33, Red Cell Distribution Width 13.2, Platelet Count 285, Mean Platelet Volume 10.2, Immature Granulocyte % (Auto) 0, Neutrophils (%) (Auto) 40L, Lymphocytes (%) (Auto) 46H, Monocytes (%) (Auto) 9, Eosinophils (%) (Auto) 4, Basophils (%) (Auto) 1, Neutrophils # (Auto) 2.3, Lymphocytes # (Auto) 2.6, Monocytes # (Auto) 0.5, Eosinophils # (Auto) 0.2, Basophils # (Auto) 0.1, Immature Granulocyte # (Auto) 0.0, Sodium Level 138, Potassium Level 3.9, Chloride Level 103, Carbon Dioxide Level 27, Anion Gap 8, Blood Urea Nitrogen 19H, Creatinine 1.14, Estimat Glomerular Filtration Rate 53, BUN/Creatinine Ratio 17, Glucose Level 94, Calcium Level 9.6 Microbiology 02/28/23 MRSA Screen - Final, Complete MRSA not isolated Radiology NAME: PRICE NELSON [facility] REC#: [id number] PT STATUS: ADM IN : 1955 PHYSICIAN: ALENA HUANG MD ADMIT DATE: 02/28/23/ICU Signed Date of Exam:03/01/23 CT HEAD WO PROCEDURE: CT head without contrast. TECHNIQUE: Multiple contiguous axial images were obtained through the brain without the use of intravenous contrast. Auto Exposure Controls were utilized during the CT exam to meet ALARA standards for radiation dose reduction. INDICATION: Nausea. COMPARISON: Brain MRI on 03/01/2023. FINDINGS: No acute cranial hemorrhage. No large vascular territorial loss. Ventricles and cortical sulci are normal. No intracranial mass or fluid collection. Ventricles and cortical sulci are normal. Paranasal sinuses and mastoids are clear. Globes and orbits are normal. The skull intact. IMPRESSION: No acute intracranial hemorrhage. No large vascular territory schaefer-white loss. No intracranial mass, midline shift, or hydrocephalus. Dictated by: Dictated on workstation # [id number] Dict: 03/01/23 1700 Trans: 03/01/23 1701 [facility] [id number] Interpreted by: JARRET LOGAN DO Electronically signed by: JARRET LOGAN DO 03/01/23 170 NAME: PRICE NELSON [facility] REC#: [id number] PT STATUS: REG ER : 1955 PHYSICIAN: J CARLOS GARCIA MD ADMIT DATE: 02/28/23/ER Signed Date of Exam:02/28/23 CT ANGIO HEAD/NECK PROCEDURE: CT angiography of the head and CT angiography of the neck with and without contrast. TECHNIQUE: Contiguous noncontrast images were obtained from the skull base through the vertex. After intravenous contrast administration, helical CT angiography of the neck was performed. Source data was reformatted into 3D MIP projections. Delayed post contrast acquisition was also obtained. Auto Exposure Controls were utilized during the CT exam to meet ALARA standards for radiation dose reduction. INDICATION: Diplopia, blurred vision, nausea, clinical suspicion for stroke. COMPARISON: Study is compared with exam 12/30/2015. FINDINGS: Delayed postcontrast-enhanced head CT showed patency of the major dural venous sinuses with no abnormal parenchymal or meningeal enhancement. No contrast extravasation. No hydrocephalus. No mass or mass effect. CT ANGIOGRAM NECK: The left common carotid arises off the innominate as a variant. Great vessels are widely patent. Bilateral cervical vertebral arteries are patent and codominant. The common carotids are patent. There is predominantly calcified plaque at the left proximal ICA resulting in no luminal stenosis. The cervical internal carotids are otherwise widely patent and do have a tortuous course. No cervical arterial dissection, occlusion, or significant stenosis. CT ANGIOGRAM HEAD: The intradural vertebral arteries, the basilar, and the bilateral EXHIBIT TECHNICIAN segments are patent. The intracranial ICAs showed mild non-stenosing calcified plaques at their cavernous segments. The anterior cerebral arterial segments and the A-comm are all widely patent. The bilateral middle cerebral arterial segments and their primary branches are patent. No thrombus or large vessel occlusion. No aneurysm or vascular malformation. IMPRESSION: Mild non-stenosing cervical and intracranial left greater than right carotid atherosclerotic calcified plaques, but no thrombus, aneurysm, dissection, or acute cervical or intracranial arterial pathology. Dictated by: Dictated on workstation # [id number] Dict: 02/28/23 1540 Trans: 02/28/23 1649 [id number] Interpreted by: ANGEL DAILEY Electronically signed by: ANGEL DAILEY 02/28/23 1649 ECG Impression ECG Initial ECG Rhythm: Normal Sinus A/P-Cardiology Assessment/Admission Diagnosis Cryptogenic CVA - received tPA in the ED with resolution of symptoms - CTA of 03-01-23: Mild non-stenosing cervical and intracranial left greater than right carotid atherosclerotic calcified plaques, but no thrombus, aneurysm, dissection, or acute cervical or intracranial arterial pathology. H/O previous CVA in 2016 - no residual Probable TIA's since CVA in 2016 by pt description HTN HLD Anxiety H/O back fusion H/O colo-rectal cancer Discussion and Recomendations Cryptogenic CVA - symptoms resolved following tPA - no evidence of signif carotid dz - advise ILR implant to eval for possible arrhythmia - she is agreeable - management of stroke per medical services Advise out pt f/u We would like to thank medical services for this consult Further recs will be based on her hospital course MULUGETA MINA Mar 02, 2023 08:05
[2023-03-02] MEDS ORDERED: ASPIRIN enteric coated 81MG TABLET PO SCH (09:00)
[2023-03-02] MEDS ORDERED: ATOR40TA70 PO (10:23)
[2023-03-02] MEDS ORDERED: ASPI-999 PO (10:23)
[2023-03-02 11:25] VITALS: BP 111/74
--- NOTE | 2023-03-02 13:18 | Consultation-Cardiology ---
HPI-Cardiology Cardiology Consultation: Date of Consultation 03/02/23 Time Seen by a Provider: 11:45 Date of Admission Attending Physician Fernando Bernstein MD Admitting Physician Admitting Physician: Alena Huang MD Attending Physician: Alena Huang MD Consulting Physician MK CHAVIS MD, MA, FACP, FACC, FSCAI, CCDS HPI: Chief Complaint: Crytpogenic CVA Ms. Dowling is a 67 yr old female admitted to [facility] from the ED d/t CVA. She reports yesterday she developed "factured" vision reporting that it was like looking through broken glass. She report dizziness, nausea, emesis, dis-equalibrium while sitting. She states the symptoms were nearly exactly the same as at the time of her CVA in 2016. She denies any c/o CP, palpitations, SOB. She denies any syncope or near syncope. She has chronic bilat LE swelling which is unchanged in the recent past. She states she is feeling back to her baseline. She denies any weakness in her extremities, dysphagia or difficulty speaking. She reports since her last stroke she has had episodes of vision changes that last for a few seconds. She states she was on ASA tx, but it was stopped by her PCP d/t blood in her stool several yrs ago. Review of Systems-Cardiology Review of Systems Constitutional: no symptoms reported; No chills, No fever Eyes: As described under HPI Ears/Nose/Throat: As described under HPI Respiratory: As described under HPI Cardiovascular: As described under HPI Gastrointestinal: As described under HPI Genitourinary: No dysuria, No hematuria : No Musculoskeletal: no symptoms reported Skin: No rash on exposed areas, No ulcerations on exposed areas Psychiatric/Neurological: As described under HPI Hematologic: No bleeding abnormalities CJY-Xewtav-Abhaxc Hx Patient Social History Former smoker/When Quit: November 29, 1991 Alcohol Use?: No Immunizations Up To Date Tetanus Booster (TDap): More than 5yrs Past Medical History PMH As described under Assessment. Family Medical History Family Medical History: Vague h/o of possible DC in father at early age although subsequent cath did not show CAD, according to Ms Dowling Family History: Arthritis Asthma Cataracts Deafness or hearing loss Dementia Diabetes mellitus Fibrocystic disease of breast Gastroenteritis Headache disorder Hypercholesterolemia Hypertension Myocardial infarction Osteoporosis Parkinson's disease Psychosocial problem Thyroid disease Visual disorder No Family History of: AIDS Abdominal aortic aneurysm Dexter's disease Alcoholism Alzheimer's disease Aphasia Cancer of mouth Cardiovascular disease Colon cancer Completed stroke Congenital disease Congenital heart disease Coronary thrombosis Cystic fibrosis Drug abuse Dysphasia Glaucoma Infertility Kidney disease Not obtainable due to adoption Prostate cancer Respiratory disorder Seizure disorder Severe allergy Tuberculosis Allergies and Home Medications Allergies Coded Allergies: Sulfa (Sulfonamide Antibiotics) (Unverified Allergy, Unknown, 11/28/14) Tetanus Vaccines and Toxoid (Unverified Adverse Reaction, Mild, 11/28/14) ADVERSE REACTION TO ONE 34 YRS AGO Patient Home Medication List Home Medication List Reviewed: Yes Amitriptyline HCl (Amitriptyline HCl) 50 Mg Tablet, 50 MG PO HS, (Reported) Entered as Reported by: GLEN SILVA on 12/31/15 0835 Last Action: Reviewed Aspirin (Aspirin) 81 Mg Tab.chew, 81 MG PO DAILY Prescribed by: ALENA HUANG on 03/02/23 102 Atorvastatin Calcium (Atorvastatin Calcium) 40 Mg Tablet, 40 MG PO HS Prescribed by: ALENA HUANG on 03/02/23 1023 Cholecalciferol (Vitamin D3) (Vitamin D3) 25 Mcg (1000 Unit) Tablet, 25 MCG PO HS, (Reported) Entered as Reported by: SARAN JEAN-BAPTISTE on 03/01/231344 Last Action: Reviewed Cranberry (Cranberry) 400 Mg Capsule, 400 MG PO HS, (Reported) Entered as Reported by: SARAN JEAN-BAPTISTE on 03/01/231344 Last Action: Reviewed Cyanocobalamin (Vitamin B-12) (Vitamin B-12) 1,000 Mcg Tablet, 1,000 MCG PO HS, (Reported) Entered as Reported by: SARAN JEAN-BAPTISTE on 03/01/231344 Last Action: Reviewed Gabapentin (Neurontin) 300 Mg Capsule, 300 MG PO HS, (Reported) Entered as Reported by: SARAN JEAN-BAPTISTE on 03/01/231344 Last Action: Reviewed Ibuprofen (Ibuprofen) 200 Mg Tablet, 400 MG PO HS, (Reported) Entered as Reported by: SARAN JEAN-BAPTISTE on 03/01/231344 Last Action: Reviewed Loperamide HCl (Imodium A-D) 2 Mg Tablet, 2-4 MG PO UD PRN for DIARRHEA, (Reported) Entered as Reported by: SARAN JEAN-BAPTISTE on 03/01/231344 Last Action: Reviewed Spironolact/Hydrochlorothiazid (Spironolactone-Hctz 25-25 Tab) 25 Mg-25 Mg Tablet, 2 EA PO DAILY, (Reported) Entered as Reported by: SARAN JEAN-BAPTISTE on 03/01/231344 Last Action: Reviewed Zinc Gluconate (Zinc) 50 Mg Tablet, 50 MG PO HS, (Reported) Entered as Reported by: SARAN JEAN-BAPTISTE on 03/01/231344 Last Action: Reviewed [Apple Cider Vinegar] , 1 EA PO HS, (Reported) Entered as Reported by: SARAN JEAN-BAPTISTE on 03/01/231344 Last Action: Reviewed Discontinued Medications Acetaminophen (Acetaminophen) 500 Mg Tablet, 1,000 MG PO DAILY PRN for PAIN, (Reported) Discontinued Reason: No Longer Taking Entered as Reported by: GLEN SILVA on 12/31/15 0835 Last Action: Discontinued Atorvastatin Calcium (Atorvastatin Calcium) 20 Mg Tablet, 20 MG PO HS Discontinued Reason: No Longer Taking Prescribed by: BREONNA JAMES on 01/01/16 0851 Last Action: Discontinued Atorvastatin Calcium (Atorvastatin Calcium) 20 Mg Tablet, 20 MG PO HS, (Repo rted) Discontinued Reason: Prescription changed Entered as Reported by: SARAN JEAN-BAPTISTE on 03/01/231344 Last Action: Reviewed Hydrocodone/Ibuprofen (Hydrocodone-Ibuprofen 7.5-200) 1 Each Tablet, 1-2 TAB PO Q4H PRN for PAIN-MODERATE Discontinued Reason: No Longer Taking Prescribed by: SEAN FRY on 11/01/191299 Last Action: Discontinued Nitrofurantoin Monohyd/M-Cryst (Macrobid 100 mg Capsule) 100 Mg Capsule, 1 TAB PO BID Discontinued Reason: No Longer Taking Prescribed by: SEAN FRY on 11/01/191299 Last Action: Discontinued Ondansetron (Ondansetron Odt) 8 Mg Tab.rapdis, 8 MG PO Q6H Discontinued Reason: No Longer Taking Prescribed by: SEAN FRY on 11/01/191299 Last Action: Discontinued Phenazopyridine HCl (Pyridium) 200 Mg Tablet, 1 TAB PO TID Discontinued Reason: No Longer Taking Prescribed by: SEAN FRY on 11/01/191299 Last Action: Discontinued Tamsulosin HCl (Flomax) 0.4 Mg Cap, 0.4 MG PO DAILY Discontinued Reason: No Longer Taking Prescribed by: SEAN FRY on 11/01/19 1300 Last Action: Discontinued Physical Exam-Cardiology Physical Exam Vital Signs/I&O 03/02/23 03/02/23 03/02/23 03/02/23 03:54 07:00 07:32 08:40 Temp 36.0 Pulse 68 66 70 Resp 16 17 B/P (MAP) 117/68 (84) 101/67 (78) Pulse Ox 93 94 O2 Delivery Room Air Room Air Room Air 03/02/23 11:25 Temp 36.4 Pulse 74 Resp 17 B/P (MAP) 111/74 (86) Pulse Ox 95 O2 Delivery Room Air 03/02/23 00:00 Intake Total 1000 ml Output Total 500 ml Balance 500 ml Capillary Refill : Less Than 3 Seconds Constitutional: AAO x 3, well-developed, well-nourished HEENT: PERRL, hearing is well preserved, oral hygience is good Neck: No carotid bruit; carotid pulses are 2 + bilaterally Respiratory: No accessory muscle use, No respiratory distress; chest expansion is symmetric, chest is bilaterally symmetric, lungs clear to auscultation Cardiovascular: regular rate-rhythm; No JVD; S1 and S2 Gastrointestinal: No tender; soft, round, audible bowel sounds Extremities: other (mod bilat LE swelling) Neurologic/Psychiatric: other (moves all extremities) Skin: No rash on exposed areas, No ulcerations on exposed areas Data Review Labs Laboratory Tests 03/02/23 05:10: White Blood Count 5.7, Red Blood Count 4.13, Hemoglobin 12.5, Hematocrit 38, M yaritza Corpuscular Volume 92, Mean Corpuscular Hemoglobin 30, Mean Corpuscular Hemoglobin Concent 33, Red Cell Distribution Width 13.2, Platelet Count 285, Mean Platelet Volume 10.2, Immature Granulocyte % (Auto) 0, Neutrophils (%) (Auto) 40L, Lymphocytes (%) (Auto) 46H, Monocytes (%) (Auto) 9, Eosinophils (%) (Auto) 4, Basophils (%) (Auto) 1, Neutrophils # (Auto) 2.3, Lymphocytes # (Auto) 2.6, Monocytes # (Auto) 0.5, Eosinophils # (Auto) 0.2, Basophils # (Auto) 0.1, Immature Granulocyte # (Auto) 0.0, Sodium Level 138, Potassium Level 3.9, Chloride Level 103, Carbon Dioxide Level 27, Anion Gap 8, Blood Urea Nitrogen 19H, Creatinine 1.14, Estimat Glomerular Filtration Rate 53, BUN/Creatinine Ratio 17, Glucose Level 94, Calcium Level 9.6 Microbiology 02/28/23 MRSA Screen - Final, Complete MRSA not isolated Laboratory Tests 02/28/23 15:10 03/01/23 03:50 03/02/23 05:10 A/P-Cardiology Assessment/Admission Diagnosis Cryptogenic CVA - received tPA in the ED with resolution of symptoms - CTA of 03-01-23: Mild non-stenosing cervical and intracranial left greater than right carotid atherosclerotic calcified plaques, but no thrombus, aneurysm, dissection, or acute cervical or intracranial arterial pathology. H/O previous CVA in 2016, treated with fibrinolysis - no residual Probable TIA's since CVA in 2015 by pt description HTN HLD Anxiety H/O back fusion H/O colo-rectal cancer Discussion and Recomendations Cryptogenic CVA - symptoms resolved following tPA - no evidence of signif carotid dz - advise ILR implant to eval for possible arrhythmia - pros and cons reviewed - she agrees - management of stroke per medical services Advise out pt f/u We would like to thank medical services for this consult MK CHAVIS MD FACP [facility] CCDS Mar 02, 2023 13:17
--- NOTE | 2023-03-02 15:17 | Discharge Summary ---
Discharge Summary Hospital Course Problems/Dx: (1) Cryptogenic stroke Status: Acute (2) History of stroke Status: Chronic (3) HTN (hypertension) Status: Chronic (4) HLD (hyperlipidemia) Status: Chronic (5) Obesity Status: Chronic Hospital Course Date of Admission: Feb 28, 2023 at 18:26 Admission Diagnosis : Stroke Family Physician/Provider: Caleb Bernstein MD Date of Discharge: 03/02/23 Discharge Diagnosis: Stroke Hospital Course: Annalise Dowling is a 67 year old female with PMH HTN, HLD, obesity, history of CVA, who was admitted with acute stroke. She had diplopia, dizziness, nausea, and speech issues. Her CT head was negative for acute abnormalities. She was given tPA and her symptoms resolved. Her repeat CT showed no hemorrhage. An MRI brain was negative for acute ischemia. She had a CTA without significant occlusion. She had an echo without evidence of shunt. She was started on Aspirin. Her Lipitor was increased. Cardiology was consulted due to her recurrent cryptogenic stroke. She had an implantable loop recorder placed. She was discharged home in stable condition. She should follow up with Dr. Bernstein in about a week. She should follow up with Dr. Ramsey as scheduled. Labs and Pending Lab Test: Laboratory Tests 03/02/23 05:10: White Blood Count 5.7, Red Blood Count 4.13, Hemoglobin 12.5, Hematocrit 38, Mean Corpuscular Volume 92, Mean Corpuscular Hemoglobin 30, Mean Corpuscular Hemoglobin Concent 33, Red Cell Distribution Width 13.2, Platelet Count 285, Mean Platelet Volume 10.2, Immature Granulocyte % (Auto) 0, Neutrophils (%) (Auto) 40L, Lymphocytes (%) (Auto) 46H, Monocytes (%) (Auto) 9, Eosinophils (%) (Auto) 4, Basophils (%) (Auto) 1, Neutrophils # (Auto) 2.3, Lymphocytes # (Auto) 2.6, Monocytes # (Auto) 0.5, Eosinophils # (Auto) 0.2, Basophils # (Auto) 0.1, Immature Granulocyte # (Auto) 0.0, Sodium Level 138, Potassium Level 3.9, Chloride Level 103, Carbon Dioxide Level 27, Anion Gap 8, Blood Urea Nitrogen 19H, Creatinine 1.14, Estimat Glomerular Filtration Rate 53, BUN/Creatinine Ratio 17, Glucose Level 94, Calcium Level 9.6 Microbiology 02/28/23 MRSA Screen - Final, Complete MRSA not isolated Home Meds Active Aspirin 81 Mg Tab.chew 81 Mg PO DAILY 30 Days Atorvastatin Calcium 40 Mg Tablet 40 Mg PO HS 30 Days Reported Imodium A-D (Loperamide HCl) 2 Mg Tablet 2-4 Mg PO UD PRN Ibuprofen 200 Mg Tablet 400 Mg PO HS TAKES 2 (200MG) TABS Cranberry 400 Mg Capsule 400 Mg PO HS [Apple Cider Vinegar] 1 Ea PO HS Zinc (Zinc Gluconate) 50 Mg Tablet 50 Mg PO HS Vitamin D3 (Cholecalciferol (Vitamin D3)) 25 Mcg (1000 Unit) Tablet 25 Mcg PO HS Vitamin B-12 (Cyanocobalamin (Vitamin B-12)) 1,000 Mcg Tablet 1,000 Mcg PO HS Spironolactone-Hctz 25-25 Tab (Spironolact/Hydrochlorothiazid) 25 Mg-25 Mg Tablet 2 Ea PO DAILY Neurontin (Gabapentin) 300 Mg Capsule 300 Mg PO HS Amitriptyline HCl 50 Mg Tablet 50 Mg PO HS Assessment/Pt Instructions See instructions Discharge Planning: >30 minutes discharge planning Discharge Instructions Discharge Diet: Low Sodium Diet Activity as Tolerated: Yes Discharge Physical Examination Vital Signs Vital Signs Date Time Temp Pulse Resp B/P (MAP) Pulse Ox O2 Delivery O2 Flow Rate FiO2 03/02/23 13:53 70 03/02/23 11:25 36.4 17 111/74 (86) 95 Room Air 03/01/23 15:00 General Appearance: No Apparent Distress, Obese HEENT: PERRL/EOMI, Pharynx Normal Respiratory: Lungs Clear, No Respiratory Distress Cardiovascular: Regular Rate, Rhythm, No Murmur Gastrointestinal: Normal Bowel Sounds, Soft Extremity: Non Tender, Pedal Edema Neurologic/Psychiatric: Alert, Normal Mood/Affect, Sensory Deficit (peripheral neuropathy) Allergies: Coded Allergies: Sulfa (Sulfonamide Antibiotics) (Unverified Allergy, Unknown, 11/28/14) Tetanus Vaccines and Toxoid (Unverified Adverse Reaction, Mild, 11/28/14) ADVERSE REACTION TO ONE 34 YRS AGO Copy Copies To 1: CALEB BERNSTEIN MD Discharge Summary Date of Admission Feb 28, 2023 at 18:26 Date of Discharge Discharge Date: Mar 02, 2023 Discharge Time: 15:11 Admission Diagnosis Acute ischemic stroke Consults/Procedures Consulations Cardiology Procedures Implantable loop recorder Discharge Diagnosis Acute ischemic stroke History of CVA HTN HLD Obesity (1) Cryptogenic stroke Status: Acute (2) History of stroke Status: Chronic (3) HTN (hypertension) Status: Chronic (4) HLD (hyperlipidemia) Status: Chronic (5) Obesity Status: Chronic ALENA HUANG MD Mar 02, 2023 15:16
[2023-03-02] MEDS ORDERED: LIDOCAINE 1% INJ 20 ML VIAL ONE (15:29)
[2023-03-02 15:37] VITALS: BP 128/62
[2023-03-02] MEDS ORDERED: LIDOCAINE 1% INJ 20 ML VIAL INJ ONE (17:00)
[2023-03-02 18:26] VITALS: BP 128/62
--- NOTE | 2023-03-03 00:11 | OPERATIVE REPORT ---
DATE OF SERVICE: 02/28/2023 PREOPERATIVE DIAGNOSIS: Cryptogenic stroke. POSTOPERATIVE DIAGNOSIS: Cryptogenic stroke. PROCEDURE: Implantable loop recorder implantation. DESCRIPTION OF PROCEDURE: Implantable loop recorder implantation was carried out after having obtained an informed consent. The left prepectoral area was prepared and draped in the usual sterile fashion. 1% lidocaine was used for local anesthesia. The tools provided with the [employer] LINQ II device were used to make a subcutaneous pocket anterior to the fourth intercostal space on the left side and the device was placed in the pocket and the wound edges were closed using Dermabond and Steri-Strips. She tolerated the procedure well. The serial number of the device is [id number]. Job ID: [id number] DocumentID: [id number] Dictated Date: 03/02/2023 17:57:28 Job Interviewer Date: 03/03/2023 00:08:00 Dictated By: MK CHAVIS MD; KIRA; FACP; FACC;
== END 2023-03-02 18:27 | disposition home or self-care (01) | DRG 42 ==
LOC: EDUNIT# 15:07 → ER 15:08 → ICU 18:26 → 4TH 03-01 18:13
PROVIDERS: ADMIT Internal Medicine; ATTEND Internal Medicine
PROC: 3E03317 Introduction of Other Thrombolytic into Peripheral Vein, Percutaneous Approach (ICD-10-PCS; principal; 2023-02-28)
PROC: 0JH632Z Insertion of Monitoring Device into Chest Subcutaneous Tissue and Fascia, Percutaneous Approach (ICD-10-PCS; 2023-02-28)
DX: I63.9 Cerebral infarction, unspecified (principal); R42 Dizziness and giddiness; H53.2 Diplopia; R47.1 Dysarthria and anarthria; H55.00 Unspecified nystagmus; I10 Essential (primary) hypertension; E78.00 Pure hypercholesterolemia, unspecified; G62.9 Polyneuropathy, unspecified; N31.9 Neuromuscular dysfunction of bladder, unspecified; F41.9 Anxiety disorder, unspecified; Z85.048 Personal history of other malignant neoplasm of rectum, rectosigmoid junction, and anus; Z98.1 Arthrodesis status; Z88.2 Allergy status to sulfonamides; Z88.7 Allergy status to serum and vaccine; Z79.899 Other long term (current) drug therapy; Z79.891 Long term (current) use of opiate analgesic
CPT/HCPCS: 33285; 36415; 70450; 70496; 70498; 70551; 71045; 80048; 80053; 80061; 82947; 83735; 84100; 84484; 85025; 85379; 85610; 85730; 87081; 92977; 93005; 93306; 94664; 96374; 96375